=== PATIENT | female | born 1945 | race Caucasian/White ===

== ENCOUNTER 2019-08-06 10:52 | Outpatient (CLI) | payer MEDICARE, SELFPAY ==
[2019-08-06 11:50] LABS: Hemoglobin A1C 6.2 % (<5.7)
[2019-08-06 11:55] LABS: Alanine Aminotransferase 15 U/L (4-35); Albumin Level 3.8 g/dL (3.5-5.1); Alkaline Phosphatase 88 U/L (38-126); Aspartate Amino Transferase 33 U/L (14-36); Bilirubin,Total 0.5 mg/dL (0.2-1.3); Blood Urea Nitrogen 26 mg/dL (7-17); Calcium 9.3 mg/dL (8.4-10.2); Carbon Dioxide 25 mmol/L (22-30); Chloride 102 mmol/L (98-107); Estimated Glomerular Filt Rate 34; Glucose 101 mg/dL (65-105); Potassium 4.6 mmol/L (3.4-5.0); Sodium 141 mmol/L (137-145)
== END 2019-08-06 10:53 | disposition home or self-care (01) ==
PROVIDERS: PCP Family Medicine; Visit Provider Physician Assistant
DX: E11.9 Type 2 diabetes mellitus without complications (principal)
CPT/HCPCS: 36415; 80053; 83036

== ENCOUNTER 2019-08-13 10:43 | Outpatient (CLI) | payer MEDICARE, SELFPAY ==
[2019-08-13 11:27] LABS: Basophils Absolute Auto 0.1 K/mm3 (0.0-0.1); Basophils Percent Auto 1.1 % (0.2-1.2); Eosinophils Absolute Auto 0.2 K/mm3 (0-0.3); Eosinophils Percent Auto 2.4 % (0-4.4); Hematocrit 30.6 % (37.0-47.0); Hemoglobin 9.7 g/dL (12.0-15.0); Immature Granulocyte Absolute 0.08 K/mm3 (0.00-0.031); Immature Granulocyte Percent A 0.8 % (0-0.5); Lymphocytes Absolute Auto 3.23 K/mm3 (0.9-3.2); Lymphocytes Percent Auto 32.8 % (18.3-44.2); Mean Corpuscular HGB Conc 31.7 g/dl (32-36); Mean Corpuscular Hemoglobin 28.6 pg (26-34); Mean Corpuscular Volume 90.3 fl (80-100); Mean Platelet Volume 10.7 fl (7.4-10.4); Monocytes Absolute Auto 0.6 K/mm3 (0.1-0.6); Monocytes Percent Auto 6.3 % (2.6-8.5); Neutrophils Absolute Auto 5.6 K/mm3 (1.3-6.7); Neutrophils Percent Auto 56.6 % (45.5-73.1); Platelet Count Result 246 k/mm3 (150-375); Red Blood Count 3.39 M/mm3 (4.2-5.4); Red Cell Distribution Width 17.7 % (11.5-14.5); White Blood Count 9.9 K/mm3 (4.5-10.0)
[2019-08-13 11:38] LABS: D Dimer 1.92 ug/mL (<0.48)
[2019-08-13 11:41] LABS: Alanine Aminotransferase 18 U/L (4-35); Albumin Level 3.7 g/dL (3.5-5.1); Alkaline Phosphatase 85 U/L (38-126); Aspartate Amino Transferase 33 U/L (14-36); Bilirubin,Total 0.5 mg/dL (0.2-1.3); Blood Urea Nitrogen 33 mg/dL (7-17); Calcium 8.8 mg/dL (8.4-10.2); Carbon Dioxide 26 mmol/L (22-30); Chloride 99 mmol/L (98-107); Estimated Glomerular Filt Rate 29; Glucose 99 mg/dL (65-105); Potassium 4.4 mmol/L (3.4-5.0); Sodium 139 mmol/L (137-145)
[2019-08-13 11:50] LABS: NT Pro B Type Natriuretic Pept 330 PG/ML (5-100)
== END 2019-08-13 10:44 | disposition home or self-care (01) ==
PROVIDERS: PCP Family Medicine; Visit Provider Physician Assistant
DX: R06.02 Shortness of breath (principal); R06.09 Other forms of dyspnea; R60.9 Edema, unspecified
CPT/HCPCS: 36415; 80053; 83880; 84443; 85025; 85380

== ENCOUNTER 2019-08-14 10:05 | Outpatient (CLI) | payer MEDICARE, SELFPAY ==
--- NOTE | ~2019-08-14 | US_ITS ---
EXAMINATION: US venous doppler [facility] DATE: 08/14/2019 11:19 INDICATION: Lower limb edema. TECHNIQUE: Grayscale ultrasound images without and with compression and Doppler ultrasound images of the bilateral lower extremity veins were obtained. COMPARISON: None. FINDINGS: The visualized portions of right common femoral vein, profunda (deep) femoral vein, femoral vein, pop liteal vein, posterior tibial veins, and greater saphenous vein outflow are patent. There is thrombus in the peroneal veins. The visualized portions of left common femoral vein, profunda femoral vein, femoral vein, popliteal v ein, posterior tibial veins, and greater saphenous vein outflow are patent. There is thrombus in the peroneal veins. There is left inguinal lymphadenopathy. A node measures 5.1 x 2.2 cm. IMPRESSION: 1. Deep vein thrombosis involving the bilateral peroneal veins. I called this result to Paulette carter on 08/14/19 at 11:27 AM. 2. Left inguinal lymphadenopathy. Reviewed, dictated and finalized at location A. EM SUPPORT ANALYST IMPRESSION: 1. Deep vein thrombosis involving the bilateral peroneal veins. I called this result to Paulette Disla on 08/14/19 at 11:27 AM. 2. Left inguinal lymphadenopathy.
[2019-08-14 11:20] LABS: Blood Urea Nitrogen 36 mg/dL (8-26); Estimated Glomerular Filt Rate 29
== END 2019-08-14 10:06 | disposition home or self-care (01) ==
PROVIDERS: PCP Family Medicine; Visit Provider Physician Assistant
DX: R06.02 Shortness of breath (principal); I82.403 Acute embolism and thrombosis of unspecified deep veins of lower extremity, bilateral
CPT/HCPCS: 93970

== ENCOUNTER 2019-08-14 11:45 | Emergency (ER) | payer MEDICARE, SELFPAY ==
--- NOTE | ~2019-08-14 | XR_ITS ---
EXAMINATION: XR chest 2V DATE: 08/14/2019 12:21 INDICATION: Shortness of breath TECHNIQUE: PA and lateral views of the chest are obtained. COMPARISON: 07/02/2017 FINDINGS: The lungs are free of acute opacities. There is no pleural effusion or pneumothorax. The ca rdiomediastinal silhouette is normal. There is mild thoracic spondylosis. IMPRESSION: 1. No acute cardiopulmonary abnormality. Reviewed, dictated and finalized at location A. DREN'S PROGRAM COORDINATOR
--- NOTE | ~2019-08-14 | NM_ITS ---
EXAMINATION: NM lung vent and perfusion DATE: 08/14/2019 13:43 INDICATION: Shortness of breath. TECHNIQUE: The patient breathed 17.2 mCi xenon-133 for ventilation images. 5.22 mCi Tc-99m MAA was ad ministered intravenously for perfusion images. Scintigraphic images of the chest were obtained. COMPARISON: Chest 2 views 08/14/2019 FINDINGS: The single breath ventilation image demonstrates small defects in the upper lobes and lower lobes. Th ere is a moderate-sized defect in left upper lobe. Ventilation washout images show retention in left midlung zone. Perfusion images show a matched moderate-sized defect in left upper lobe. ] IMPRESSION: 1. Low probability for pulmonary embolism. Reviewed, dictated and finalized at location A. ON WRAPPER
[2019-08-14 11:56] VITALS: BP 121/99; PULSE 80; RESP 24; TEMP 36.7; O2SAT 100
--- NOTE | 2019-08-14 11:56 | ED.SOB ---
HPI - SOB/Dyspnea General Chief Complaint: Shortness of Breath/Dyspnea Stated Complaint: SOB and ?? DVT Time Seen by Provider: 08/14/19 11:47 Source: patient Mode of arrival: ambulatory Limitations: no limitations History of Present Illness HPI Narrative: A 73 y/o female presents to the ED with c/o SOB. Pt states that the SOB started 6 months ago and has been constant since. She notes that she was seen by Dr. Scott yesterday and was diagnosed with bilateral DVT's today. Pt adds that the SOB is aggravated when she lies down. She denies CP. 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 MD elicited complaint: shortness of breath Pertinent past history: DVT Onset (ago): month(s) (6) Timing: constant Exacerbating factors: lying flat Known history of: DVT Associated symptoms: denies other symptoms Related Data Allergies Allergy/AdvReac Type Severity Reaction Status Date / Time atorvastatin Allergy Severe HIVES Verified 07/30/17 11:51 cefaclor Allergy Unknown Unknown Verified 08/14/19 12:11 lisinopril Allergy Unknown Unknown Verified 08/14/19 12:11 Review of Systems Review of Systems: All systems reviewed & are unremarkable except as noted in HPI and below Cardiovascular: Cardiovascular: Denies chest pain Respiratory: Respiratory: Reports dyspnea PMFSH Past Medical History Medical History (Updated 08/14/19 @ 14:12 by Gallito Barnett MD) Allergic rhinitis Cataracts, bilateral Chronic kidney disease, stage 1 Chronic lymphoid leukemia CKD (chronic kidney disease), stage III Collar bone fracture Diverticulosis DVT (deep venous thrombosis) Esophageal stricture Essential hypertension GERD (gastroesophageal reflux disease) Glaucoma Hairy cell leukemia History of chemotherapy Hyperlipidemia Lymphoma Mixed hyperlipidemia Nocturnal leg movements 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 VASILE (obstructive sleep apnea) Seasonal allergies Sleep apnea SOB (shortness of breath) 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 chronic kidney disease Uterine cancer Surgical History Surgical History History of cataract surgery History of hysterectomy Family History Family History Father Family history of lung cancer Mother Family history of lung cancer Other Diabetes mellitus Family history of allergic disorder Family history of malignant neoplasm Hypertension Social History Social History Smoking status: Never smoker Alcohol intake: never Exam Const: General: healthy appearing and no acute distress Nutritional Appearance: obese HENMT: Mouth: Yes lip normal and Yes moist mucous membranes Eyes: Conjunctivae: conjunctivae normal Pupils: Equal, round and reactive pupils present Resp: Effort & Inspection: tachypneic Auscultation: clear to auscultation bilaterally Cardio: Rate: regular rate Rhythm: regular rhythm Heart sounds: no murmurs GI: GI Palp: Yes Soft to palpation and No Tenderness to palpation present (GI) Auscultation: normal bowel sounds Back/Spine/Pelvis: Back: other (Full ROM) Skin: General skin exam: normal color, dry skin and other (Warm) Neuro: General: patient oriented x3 (Alert) Speech: normal speech Extrem: General: full ROM and edema bilateral (Trace lower extremity) Psych: Mental Status: mental status grossly normal Affect: Anxious affect present Course Consultations Consultation #1: Discussed case with the patients PCP, Dr. Scott. They advise to have the patient started on Xarelto and they will follow-up. Date: 08/14/19 Time: 14:06 Vital Signs Vital signs: Vital Signs Temperature 36.7 C 08/14/19 11:56 Pulse Rate 80 08/14/19 11:56 Respiratory Rate 24 H 08/14/19 11:56 Blood Pressure 121/99 H 08/14/19 11:56 Pulse Oxime
--- NOTE | 2019-08-14 12:06 | ECG_ITS ---
Measurements Intervals [place] Rate: 74 P: 32 ID: 158 QRS: -35 QRSD: 75 T: 61 QT: 367 QTc: 409 Interpretive Statements SINUS RHYTHM LEFT AXIS DEVIATION RSR' IN V1 OR V2, CONSIDER RIGHT VENTRICULAR HYPERTROPHY OR RIGHT VCD LOW QRS VOLTAGE IN PRECORDIAL LEADS POOR R WAVE PROGRESSION, ANTERIOR LEADS BASELINE ARTIFACT- V5 BORDERLINE ECG Electronically Signed On 08-14-2019 12:20:54 [employer] by Lion Lee D.O.
[2019-08-14 12:25] VITALS: PULSE 79
[2019-08-14 13:00] VITALS: BP 131/46; PULSE 75; RESP 24; TEMP 36.6; O2SAT 97
[2019-08-14 14:00] VITALS: BP 125/63; PULSE 72; RESP 22; O2SAT 98
[2019-08-14 15:00] VITALS: BP 142/89; PULSE 66; RESP 23; TEMP 36.2; O2SAT 95
== END 2019-08-14 15:10 | disposition home or self-care (01) ==
PROVIDERS: Emergency Provider Emergency Medicine; PCP Family Medicine
DX: I82.453 Acute embolism and thrombosis of peroneal vein, bilateral (principal); R06.00 Dyspnea, unspecified; E11.22 Type 2 diabetes mellitus with diabetic chronic kidney disease; N18.9 Chronic kidney disease, unspecified; I12.9 Hypertensive chronic kidney disease with stage 1 through stage 4 chronic kidney disease, or unspecified chronic kidney disease; H40.9 Unspecified glaucoma; C91.40 Hairy cell leukemia not having achieved remission; E78.2 Mixed hyperlipidemia; G47.33 Obstructive sleep apnea (adult) (pediatric); Z85.42 Personal history of malignant neoplasm of other parts of uterus; Z79.899 Other long term (current) drug therapy; R94.31 Abnormal electrocardiogram [ECG] [EKG]
CPT/HCPCS: 71046; 78582; 93005; 93970; 99283; A9540; A9558

== ENCOUNTER 2020-04-05 11:11 | Outpatient (CLI) | payer MEDICARE, SELFPAY ==
[2020-04-05 11:56] LABS: Basophils Absolute Auto 0.1 K/mm3 (0.0-0.1); Basophils Percent Auto 1.1 % (0.2-1.2); Eosinophils Absolute Auto 0.2 K/mm3 (0-0.3); Eosinophils Percent Auto 2.1 % (0-4.4); Hematocrit 25.8 % (37.0-47.0); Hemoglobin 8.5 g/dL (12.0-15.0); Immature Granulocyte Absolute 0.11 K/mm3 (0.00-0.031); Immature Granulocyte Percent A 1.1 % (0-0.5); Lymphocytes Percent Auto 34.8 % (18.3-44.2); Mean Corpuscular HGB Conc 32.9 g/dl (32-36); Mean Corpuscular Hemoglobin 32.2 pg (26-34); Mean Corpuscular Volume 97.7 fl (80-100); Mean Platelet Volume 10.3 fl (7.4-10.4); Monocytes Absolute Auto 0.8 K/mm3 (0.1-0.6); Monocytes Percent Auto 7.2 % (2.6-8.5); Neutrophils Absolute Auto 5.6 K/mm3 (1.3-6.7); Neutrophils Percent Auto 53.7 % (45.5-73.1); Platelet Count Result 318 k/mm3 (150-375); Red Blood Count 2.64 M/mm3 (4.2-5.4); Red Cell Distribution Width 17.6 % (11.5-14.5); White Blood Count 10.4 K/mm3 (4.5-10.0)
[2020-04-05 12:21] LABS: LDL Cholesterol Direct 47 mg/dL
[2020-04-05 12:40] LABS: Alanine Aminotransferase 14 U/L (4-35); Albumin Level 3.3 g/dL (3.5-5.1); Alkaline Phosphatase 88 U/L (38-126); Anion Gap 7 mmol/L (8-16); Aspartate Amino Transferase 25 U/L (14-36); Bilirubin,Total 0.7 mg/dL (0.2-1.3); Blood Urea Nitrogen 29 mg/dL (7-17); Carbon Dioxide 29 mmol/L (22-30); Chloride 104 mmol/L (98-107); Cholesterol 100 mg/dL (0-200); Estimated Glomerular Filt Rate 31; Glucose 103 mg/dL (65-105); HDL Direct 21 mg/dL; Sodium 140 mmol/L (137-145); Triglycerides 146 mg/dL (<150)
[2020-04-05 13:05] LABS: Potassium 4.4 mmol/L (3.4-5.0)
[2020-04-05 13:06] LABS: Hemoglobin A1C 6.1 % (<5.7)
[2020-04-05 17:23] LABS: Creatinine Urine 131.7 mg/dL
[2020-04-05 17:28] LABS: MALB Creatinine Ratio 23.6 mg/g (0-30); Microalbumin Urine Random 31.1 mg/L (0-16.7)
== END 2020-04-05 11:12 | disposition home or self-care (01) ==
LOC: ANHLAB 11:18
PROVIDERS: PCP Family Medicine; Visit Provider Physician Assistant
DX: E78.5 Hyperlipidemia, unspecified (principal); I12.9 Hypertensive chronic kidney disease with stage 1 through stage 4 chronic kidney disease, or unspecified chronic kidney disease; E11.22 Type 2 diabetes mellitus with diabetic chronic kidney disease; N18.30 Chronic kidney disease, stage 3 unspecified; C91.41 Hairy cell leukemia, in remission
CPT/HCPCS: 36415; 80053; 80061; 82043; 83036; 85025

== ENCOUNTER 2020-07-05 10:10 | Inpatient (IN) | payer MEDICARE, SELFPAY ==
[2020-07-05] VITALS (31 sets, daily range): BP systolic 91–166; BP diastolic 20–145; PULSE 78–113; RESP 14–38; TEMP 36.1–37.2; O2SAT 78–100; BMI 40.6
--- NOTE | ~2020-07-05 | US_ITS ---
EXAMINATION: US renal BI DATE: 07/06/2020 10:49 INDICATION: Acute kidney injury. Chronic kidney disease. TECHNIQUE: Multiple ultrasound grayscale images of the kidneys were obtained. COMPARISON: Ultrasound 05/15/2017, abdomen MRI 05/29/2017 FINDINGS: The right kidney measures 10.1 x 5.1 x 5.5 cm. The left kidney measures 11.9 x 5.0 x 6.8 cm. The kidn eys demonstrate normal parenchymal echogenicity. There is no hydronephrosis. The bladder is decompres sed by a Wray catheter. IMPRESSION: 1. Normal kidney sizes. No hydronephrosis. Reviewed, dictated and finalized at location B. EL STATIONARY ENGINEER
--- NOTE | ~2020-07-05 | XR_ITS ---
EXAMINATION: XR chest 2V DATE: 07/05/2020 10:44 INDICATION: Shortness of breath and wheezing and cough. TECHNIQUE: Frontal and lateral views of the chest were obtained. COMPARISON: Chest 2 views 08/14/2019 FINDINGS: There are airspace and interstitial opacities throughout the lungs bilaterally. There are s mall pleural effusions. No pneumothorax. The heart size is normal. IMPRESSION: 1. Diffuse lung disease, consistent with pulmonary edema versus pneumonia. 2. Small pleural effusions. Reviewed, dictated and finalized at location B. L ENGINEERING ASSISTANT
--- NOTE | 2020-07-05 10:31 | ECG_ITS ---
Measurements Intervals [place] Rate: 114 P: [place]: 0 QRS: -21 QRSD: 84 T: 89 QT: 293 QTc: 405 Interpretive Statements SINUS TACHYCARDIA INCOMPLETE RIGHT BUNDLE BRANCH BLOCK LOW QRS VOLTAGE- DIFFUSE LEADS POOR R WAVE PROGRESSION, ANTERIOR LEADS BORDERLINE ST-T WAVE ABNORMALITY- HIGH LATERAL LEADS BASELINE ARTIFACT- I, II, AVR, AVL, V1 ABNORMAL ECG Electronically Signed On 07-05-2020 10:39:17 DIRECTOR OF SAFETY AND SECURITY by Lion Lee D.O.
[2020-07-05 10:35] LABS: Basophils Absolute Auto 0.2 K/mm3 (0.0-0.1); Basophils Percent Auto 0.8 % (0.2-1.2); Eosinophils Absolute Auto 0.1 K/mm3 (0-0.3); Eosinophils Percent Auto 0.7 % (0-4.4); Hematocrit 26.5 % (37.0-47.0); Hemoglobin 8.5 g/dL (12.0-15.0); Immature Granulocyte Absolute 0.15 K/mm3 (0.00-0.031); Immature Granulocyte Percent A 0.8 % (0-0.5); Lymphocytes Absolute Auto 4.08 K/mm3 (0.9-3.2); Lymphocytes Percent Auto 22.1 % (18.3-44.2); Mean Corpuscular HGB Conc 32.1 g/dl (32-36); Mean Corpuscular Hemoglobin 29.6 pg (26-34); Mean Corpuscular Volume 92.3 fl (80-100); Monocytes Absolute Auto 0.9 K/mm3 (0.1-0.6); Monocytes Percent Auto 4.7 % (2.6-8.5); Neutrophils Absolute Auto 13.1 K/mm3 (1.3-6.7); Neutrophils Percent Auto 70.9 % (45.5-73.1); Platelet Count Result 309 k/mm3 (150-375); Red Blood Count 2.87 M/mm3 (4.2-5.4); Red Cell Distribution Width 18.4 % (11.5-14.5); White Blood Count 18.4 K/mm3 (4.5-10.0)
[2020-07-05 10:47] LABS: Alanine Aminotransferase 15 U/L (4-35); Albumin Level 3.5 g/dL (3.5-5.1); Alkaline Phosphatase 85 U/L (38-126); Anion Gap 6 mmol/L (8-16); Aspartate Amino Transferase 23 U/L (14-36); Bilirubin,Total 0.8 mg/dL (0.2-1.3); Blood Urea Nitrogen 29 mg/dL (7-17); Calcium 8.8 mg/dL (8.4-10.2); Carbon Dioxide 25 mmol/L (22-30); Chloride 109 mmol/L (98-107); Estimated CRCL calculation 34 ml/min; Estimated Glomerular Filt Rate 40; Glucose 133 mg/dL (65-105); Potassium 4.8 mmol/L (3.4-5.0); Sodium 140 mmol/L (137-145)
[2020-07-05 10:49] LABS: INR 1.7; Prothrombin Time 20.5 Seconds (11.1-14.7)
[2020-07-05 10:50] LABS: Partial Thromboplastin Time 35.5 SECONDS (22.3-36.8)
[2020-07-05 10:55] LABS: NT Pro B Type Natriuretic Pept 2510 PG/ML (5-100)
--- NOTE | 2020-07-05 11:07 | ED.SOB ---
HPI - SOB/Dyspnea General Chief Complaint: Shortness of Breath/Dyspnea Stated Complaint: SOB Time Seen by Provider: 07/05/20 10:12 History of Present Illness HPI Narrative: Patient is a 74-year-old female who presents ER with shortness of breath. Reports worsening over the last 3 weeks but significantly worsened over the last 5 days. Received nebulizer in route by EMS with some improvement of wheezing. Patient endorses orthopnea. She also reports a 20 pound weight loss. No chest pain or chest pressure. She has had no fevers or chills or sweats. No productive cough. Denies Covid exposures. Related Data Allergies Allergy/AdvReac Type Severity Reaction Status Date / Time atorvastatin Allergy Severe HIVES Verified 07/05/20 10:30 cefaclor AdvReac Unknown Nausea and Verified 07/05/20 10:30 Vomiting Review of Systems Review of Systems: All systems reviewed & are unremarkable except as noted in HPI and below Constitutional: Constitutional: Denies chills, Denies fever(s) and Reports weakness ENT: Denies nasal congestion and Denies sore throat Cardiovascular: Cardiovascular: Denies chest pain, Denies rapid heart rate and Denies radiating jaw, neck or arm pain Respiratory: Respiratory: Denies cough, Reports dyspnea and Reports wheezing Gastrointestinal: Gastrointestinal: Denies abdominal pain, Denies nausea and Denies vomiting Genitourinary: Genitourinary: Denies nocturia and Denies dysuria Neurologic: Denies focal weakness and Denies numbness PMFSH Past Medical History Medical History (Updated 07/05/20 @ 11:36 by Bogdan Kelly MD) Allergic rhinitis Cataracts, bilateral Chronic kidney disease, stage 1 Chronic lymphoid leukemia CKD (chronic kidney disease) CKD (chronic kidney disease), stage III Collar bone fracture Diverticulosis DVT (deep venous thrombosis) Elevated TSH Esophageal stricture Essential hypertension GERD (gastroesophageal reflux disease) Glaucoma Hairy cell leukemia History of chemotherapy Hyperlipidemia Lymphoma Mixed hyperlipidemia Nocturnal leg movements 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 VASILE (obstructive sleep apnea) Restless leg syndrome Seasonal allergies Sleep apnea SOB (shortness of breath) 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 chronic kidney disease Uterine cancer Wellness examination Surgical History Surgical History History of cataract surgery History of hysterectomy Family History Family History Father Family history of lung cancer Mother Family history of lung cancer Other Diabetes mellitus Family history of allergic disorder Family history of malignant neoplasm Hypertension Social History Social History (Updated 04/20/20 @ 09:04 by Katya Murrieta [facility]) Smoking status: Never smoker Alcohol intake: never Substance use: never Substance use type: does not use Gender identity (if verbalized by the patient): Female Exam Narrative: Exam Narrative: GENERAL: Uncomortable-appearing, well-nourished, and in mild distress. HEAD: Normocephalic, atraumatic. EYES: PERRL and EOMI. ENT: Mucous membranes moist. CHEST: Increased respiratory rate with diffuse crackles without wheezing. Mild respiratory distress HEART: Tachycardic with regular rhythm. Normal peripheral pulses. ABDOMEN: Soft, nontender, nondistended. EXTREMITIES: Normal range of motion. 1+ edema. SKIN: Warm, dry, no rash. NEURO: Alert and oriented x3. PSYCH: Normal mood and affect. Course Course Emergency Course: Discussed case with patient and hospitalist service. Will diurese but also treat for possible pneumonia. Patient received Covid swab. Admit to hospitalist service. Patient being placed on BiPAP for comfort. Vital Signs Vital signs: Vital Signs Temperature 97 F L 07/05/20 10:19 Pulse Rate 113 H
[2020-07-05] MEDS: FUROSEMIDE INJ 40 MG/4 ML VIAL IV PUSH ×2 (11:49→21:08)
--- NOTE | 2020-07-05 12:37 | PC.NURSE ---
report given to Jeanette. requested we wait 10 min for transfer. she is getting both our new transfers to IMU.
--- NOTE | 2020-07-05 12:59 | PC.NURSE ---
spoke with respiratory. ok to place patient on 4L NC for transport to IMU. she will come get patient's bipap machine and take up to patient's room.
--- NOTE | 2020-07-05 16:02 | PM.IMHP ---
H&P: HPI History of Present Illness Date/Time: 07/05/20 16:02 Chief Complaint: Shortness of breath Narrative: Netta Graham is a 74 year old female who has a history of hairy cell leukemia. The patient had been on Rituxan but it was discontinued secondary to side effects September 2018. She has had a history of having a lower extremity DVT and has been on Xarelto. Patient denies ever caring the diagnosis of congestive heart failure. The patient does go to [facility] for her treatment for her leukemia. She has [id number] diabetes hypertension hyperlipidemia chronic kidney disease and obstructive sleep apnea that she uses supplemental oxygen overnight. At baseline patient has dyspnea on exertion on office visit dated on 04/20/2020 the patient has gotten more short of breath. She has had to elevate her head at night to sleep she did notice any worsening edema to lower extremities. Patient does occasionally required blood transfusions. She denies any chest pain. Consistent pulmonary edema versus pneumonia. Small pleural effusion. And Rocephin for possibility of community-acquired pneumonia. She was also given IV Lasix. The patient currently is on a BiPAP machine 14/8. 18.4. In her H&H is stable at 8.5 and the 26.5. Creatinine was noted to be 1.3 was previously 1.6. GFR is 40 and typically is 31. Glucose is 133 her last A1c on 04/05/2020 was 6.1. BNP today was noted to be 2510. Patient's COVID testing is pending. The patient's respirations have been as high as 38 today. Patient's pulse ox initially was noted to be in the upper 90s. There was 1 low reading at 78. Patient admitted to inpatient on date of service 07/05/2020 Review of Systems Review of Systems: All systems reviewed & are unremarkable except as noted in HPI and below Constitutional: Constitutional: Reports as per HPI and Reports no additional constitutional complaints Eyes: Eyes: Reports as per HPI and Reports no additional eye complaints ENT: Reports system reviewed and no additional complaints, except as documented and Reports Normal hearing present Cardiovascular: Cardiovascular: Reports no additional cardiovascular complaints Respiratory: Respiratory: Reports no additional respiratory complaints and Reports no additional respiratory complaints Gastrointestinal: Gastrointestinal: Reports as per HPI and Reports no additional gastrointestinal complaints Musculoskeletal: Musculoskeletal: Reports no additional musculoskeletal complaints Integumentary/Breasts: Skin/Breast: Reports system reviewed and no additional complaints, except as docu and Reports as per HPI Neurologic: Reports system reviewed and no additional complaints, except as documented, Reports as per HPI and Reports Normal hearing present Psychiatric: Psychiatric: Reports no additional psychiatric complaints and Reports as per HPI Endocrine: Endocrine: Reports no additional endocrine complaints Hematologic/Lymphatic: Hematologic/Lymphatic: Reports no additional hematologic/lymphatic complaints Allergic/Immunologic: Allergic/Immunologic: Reports no additional allergic/immunologic complaints [facility] Past Medical History Medical History Allergic rhinitis Cataracts, bilateral Chronic kidney disease, stage 1 Chronic lymphoid leukemia CKD (chronic kidney disease) CKD (chronic kidney disease), stage III Collar bone fracture Diverticulosis DVT (deep venous thrombosis) Elevated TSH Esophageal stricture Essential hypertension GERD (gastroesophageal reflux disease) Glaucoma Hairy cell leukemia History of chemotherapy Hyperlipidemia Lymphoma Mixed hyperlipidemia Nocturnal leg movements 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
[2020-07-05 17:53] LABS: Base Excess ABG -0.6 mEq/l (+/-2.0); Fractional Inspired Oxygen 30 %; HCO3 ABG 23.4 mEq/l (22.0-26.0); Oxygen Content ABG 11.1 %vol (16.0-22.0); Oxyhemoglobin 89.9 % THb (90.0-100.0); PCO2 ABG 35.6 mmHg (35.0-45.0); PO2 ABG 60.1 mmHg (80.0-100.0); Total Hemoglobin 8.7 g/dL (12.0-18.0); pH ABG 7.435 (7.350-7.450)
[2020-07-05 17:54] LABS: Device NON-INVASIVE VENT; Modified Allen's Test Pass; Site Drawn RIGHT RADIAL
[2020-07-05 17:55] LABS: Non-Invasive Expiratory Pressure 8 CMH2O; Non-Invasive Inspiratory Pressure 14 CMH2O; Non-Invasive Vent Rate 4 /MIN
[2020-07-05 18:31] LABS: Glucose Point of Care 102 (65-105)
--- NOTE | 2020-07-05 20:42 | ADMGEN ---
This patient, Netta Graham, was admitted to IMU Room 213-01. Patient/family oriented to hospital policies and general routines including ID bracelet, bed and alarms, visiting hours, pain management, procedures, bathroom and other care routines, personal items, smoking policy, room service/diet, and visiting hours. Information on how to activate the Rapid Response Team has been discussed. Patient/Family are encouraged to report perceived risks to care and to ask questions if they do not understand what they are told or what they should do.
[2020-07-05 21:25] LABS: SARS-CoV-2 RNA PCR Negative
[2020-07-05 23:47] LABS: Glucose Point of Care 109 (65-105)
[2020-07-06] VITALS (21 sets, daily range): BP systolic 98–164; BP diastolic 40–67; PULSE 81–113; RESP 19–39; TEMP 36.4–36.8; O2SAT 88–100
--- NOTE | 2020-07-06 | ECHO_ITS ---
Patient Info Name: Netta Graham Age: 74 years : 1945 Gender: Female Ht: 60 in Wt: 207 lbs BSA: 2.05 m2 HR: 95 bpm BP: 138 / 47 mmHg Technical Quality: Fair Exam Date: 07/06/2020 9:02 AM Exam Location: [facility] Patient Status: Inpatient Admit Date: 07/05/2020 Staff Ordering Physician: Dorothy Dunn NP Bunch Trimmer Mold: Srinivas Guzman RDCS, RT Attending Provider: Arik Cuellar MD Referring Physician: Shaun STAUFFER; Exam Type: CA echo doppler color flow Study Info Indications J81.0 - Acute pulmonary edema R06.02 - Shortness of breath Complete two-dimensional, color flow and Doppler transthoracic echocardiogram is performed. Summary 1. Complete two-dimensional, color flow and Doppler transthoracic echocardiogram is performed. 2. Left ventricular chamber dimension is normal. 3. Left ventricular systolic function is normal, estimated at 60-65%. 4. The left ventricular diastolic function is abnormal. 5. E/e' 23 is elevated. 6. Left atrial chamber dimension is moderately enlarged. 7. There is small circumferential pericardial effusion. Left Ventricle E/e' 23 is elevated. Left ventricular chamber dimension is normal. Left ventricular systolic function is normal, estimated at 60-65%. The left ventricular diastolic function is abnormal. Right Ventricle Right ventricular chamber dimension is normal. Right ventricular systolic function is normal. Left Atria Left atrial chamber dimension is moderately enlarged. Right Atria Right atrial chamber dimension is not well visualized. Aortic Valve The aortic valve is trileaflet. There is no aortic valve stenosis. There is no aortic valve regurgitation. Pulmonic Valve There is no pulmonic regurgitation. Mitral Valve There is no mitral valve stenosis. There is no mitral valve regurgitation. Tricuspid Valve There is no tricuspid valve regurgitation. Pericardium/Pleural There is small circumferential pericardial effusion. Inferior Vena Cava Normal inferior vena cava with >50% collapse upon inspiration consistent with normal right atrial pressure, 5 mmHg. Aorta The aortic root size at the sinus of Valsalva is normal. Left Ventricular Outflow Tract Name Value Normal LVOT 2D LVOT Diameter 2.0 cm LVOT Doppler LVOT Peak Gradient 4 mmHg LVOT Mean Gradient 3 mmHg LVOT VTI 25 cm LVOT VTI/AV VTI Ratio 0.6 LVOT Stroke Volume 75 ml LVOT CO 9.3 l/min LVOT CI 4.6 l/min/m2 Mitral Valve Name Value Normal MV Doppler MV Decel [place] 638 cm/s2 MV PHT 61 ms MV Area (PHT)
[2020-07-06] MEDS: LORazepam INJ (*CRX) 2 MG/ML VIAL 0.5 MG IV PUSH (02:52)
[2020-07-06 04:54] LABS: Base Excess ABG 1.1 mEq/l (+/-2.0); Carboxyhemoglobin 0.4 % THb (0-2.0); Fractional Inspired Oxygen 30 %; HCO3 ABG 26.1 mEq/l (22.0-26.0); Methemoglobin ABG 0.3 %THb (0-1.5); Oxygen Content ABG 10.2 %vol (16.0-22.0); Oxygen Saturation ABG 91.6 % (95.0-100.0); Oxyhemoglobin 90.1 % THb (90.0-100.0); PCO2 ABG 43.4 mmHg (35.0-45.0); PO2 ABG 61.9 mmHg (80.0-100.0); PO2 FiO2 Ratio Arterial Blood 2.06 %; Reduced Hemoglobin 9.2 %THb (0-5.0); pH ABG 7.397 (7.350-7.450)
[2020-07-06 04:55] LABS: Basophils Absolute Auto 0.1 K/mm3 (0.0-0.1); Basophils Percent Auto 0.9 % (0.2-1.2); Eosinophils Absolute Auto 0.2 K/mm3 (0-0.3); Eosinophils Percent Auto 1.7 % (0-4.4); Immature Granulocyte Percent A 0.7 % (0-0.5); Lymphocytes Percent Auto 19.7 % (18.3-44.2); Mean Corpuscular HGB Conc 31.8 g/dl (32-36); Mean Corpuscular Hemoglobin 28.7 pg (26-34); Mean Corpuscular Volume 90.2 fl (80-100); Mean Platelet Volume 10.7 fl (7.4-10.4); Monocytes Absolute Auto 0.9 K/mm3 (0.1-0.6); Monocytes Percent Auto 6.4 % (2.6-8.5); Neutrophils Absolute Auto 9.7 K/mm3 (1.3-6.7); Neutrophils Percent Auto 70.6 % (45.5-73.1); Platelet Count Result 246 k/mm3 (150-375); Red Blood Count 2.44 M/mm3 (4.2-5.4); Red Cell Distribution Width 18.5 % (11.5-14.5); White Blood Count 13.7 K/mm3 (4.5-10.0)
[2020-07-06 04:56] LABS: Device BIPAP; Modified Allen's Test Pass; Site Drawn RIGHT RADIAL
[2020-07-06 04:57] LABS: Expiratory Pressure 8 cmH2O; Inspiratory Pressure 14 cmH2O
[2020-07-06 05:13] LABS: Alanine Aminotransferase 13 U/L (4-35); Albumin Level 3.1 g/dL (3.5-5.1); Alkaline Phosphatase 62 U/L (38-126); Anion Gap 5 mmol/L (8-16); Aspartate Amino Transferase 22 U/L (14-36); Bilirubin,Total 0.7 mg/dL (0.2-1.3); Blood Urea Nitrogen 39 mg/dL (7-17); Calcium 8.4 mg/dL (8.4-10.2); Carbon Dioxide 27 mmol/L (22-30); Chloride 107 mmol/L (98-107); Estimated CRCL calculation 25 ml/min; Estimated Glomerular Filt Rate 27; Glucose 126 mg/dL (65-105); Magnesium 2.1 mg/dL (1.6-2.3); Potassium 4.7 mmol/L (3.4-5.0); Sodium 139 mmol/L (137-145)
[2020-07-06] MEDS: MONTELUKAST SODIUM 10 MG TABLET PO (08:36)
[2020-07-06] MEDS: LORATADINE 10 MG TABLET PO (08:36)
[2020-07-06] MEDS: FUROSEMIDE INJ 40 MG/4 ML VIAL IV PUSH ×2 (08:36→21:04)
[2020-07-06] MEDS: RIVAROXABAN 20 MG TABLET PO (08:36)
[2020-07-06] MEDS: TELMISARTAN 40 MG TABLET 80 MG PO (08:37)
[2020-07-06] MEDS: SIMVASTATIN 20 MG TABLET 40 MG PO (08:37)
[2020-07-06] MEDS: rOPINIRole HCL 1 MG TABLET 2 MG PO (08:37)
[2020-07-06 09:00] LABS: Magnesium 2.1 mg/dL (1.6-2.3)
[2020-07-06 12:37] LABS: Glucose Point of Care 101 (65-105)
--- NOTE | 2020-07-06 16:27 | PM.IMPN ---
Progress Note: A&P Assessment and Plan (1) CHF (congestive heart failure): Code(s): I50.9 - Heart failure, unspecified Status: Acute Assessment and Plan: Never had a diagnosis of congestive heart failure. She does not appear to be on a beta-lauren or an Yousuf or an Arb. Continue with the IV Lasix for now as her chest x-ray was read as diffuse lung disease consistent with pulmonary edema versus pneumonia. Patient is currently on a BiPAP and will get ABGs as well. She has trace edema to her lower extremities more so on her feet. An echo has been ordered. 07/06/20 16:27 07/06 patient is a morbidly obese presented with complaint of shortness of breath is found to have pulmonary edema as well as pneumonia, patient cardiac echo showed normal systolic function with ejection fraction of 65% and abnormal diastolic dysfunction patient is being diuresed, patient was placed on BiPAP and is tolerating, BiPAP patient was taken off for little while and now patient is back on BiPAP will continue to monitor, patient also has a community-acquired pneumonia being treated with Rocephin azithromycin will continue to monitor and repeat chest x-ray in 2 days, will have a PT OT evaluate the patient and further recommendation to follow. (2) Respiratory failure: Code(s): J96.90 - Respiratory failure, unspecified, unspecified whether with hypoxia or hypercapnia Status: Acute Assessment and Plan: Patient is currently on a BiPAP machine 29/01. She is being assessed for COVID-19. She is also being treated for pneumonia.Sleep apnea and wears oxygen at night. (3) Person under investigation for COVID-19: Code(s): Z20.822 - Contact with and (suspected) exposure to COVID-19 Status: Acute Assessment and Plan: The patient was swabbed and placed on droplet isolation. COVID test is negative patient is off isolation (4) CKD (chronic kidney disease): Qualifiers: Chronic kidney disease stage: stage 3 (moderate) Chronic kidney disease stage 3 subtype: stage 3b (GFR 30-44) Qualified Code(s): N18.32 - Chronic kidney disease, stage 3b Code(s): N18.9 - Chronic kidney disease, unspecified Status: Acute Assessment and Plan: Much improved from previous her creatinine is 1.3 and previously was 1.6. Please monitor closely with the diuretics. Wray catheter was placed as well. Patient being diuresed, renal ultrasound is normal, will continue to monitor kidney function and further recommendation to follow. (5) Restless leg syndrome: Code(s): G25.81 - Restless legs syndrome Status: Acute Assessment and Plan: Continue with home medications. Is reported that the patient was on ropinirole. (6) DVT (deep venous thrombosis): Qualifiers: DVT location: lower extremity Affected thrombotic vein of extremity: popliteal Chronicity: unspecified Laterality: unspecified laterality Qualified Code(s): I82.439 - Acute embolism and thrombosis of unspecified popliteal vein Code(s): I82.409 - Acute embolism and thrombosis of unspecified deep veins of unspecified lower extremity Status: Acute Assessment and Plan: Continue with home Xarelto (7) Type 2 diabetes mellitus with stage 1 chronic kidney disease: Code(s): E11.22 - Type 2 diabetes mellitus with diabetic chronic kidney disease; N18.1 - Chronic kidney disease, stage 1 Status: Acute Assessment and Plan: Last A1c 6.1. Hold oral medications patient is on a BiPAP. Accu-Cheks every 6 hours with sliding scale insulin and may change to I POST DOCTORAL FELLOW chest when the patient is eating. (8) VASILE (obstructive sleep apnea): Code(s): G47.33 - Obstructive sleep apnea (adult) (pediatric) Status: Acute Assessment and Plan: The patient is currently on BiPAP machine. I did check ABGs. A awaiting results (9) Chronic lymphoid leukemia: Code(s): C91.10 - Chronic lymphocytic leukemia of B-cell type
[2020-07-06 17:25] LABS: Glucose Point of Care 112 (65-105)
[2020-07-06 19:56] LABS: Glucose Point of Care 117 (65-105)
[2020-07-06] MEDS: MELATONIN 5 MG TABLET PO (21:04)
[2020-07-06] MEDS: rOPINIRole HCL 1 MG TABLET PO (21:04)
[2020-07-07] VITALS (19 sets, daily range): BP systolic 96–114; BP diastolic 41–80; PULSE 85–101; RESP 20–31; TEMP 36.4–36.6; O2SAT 93–99
[2020-07-07 05:35] LABS: Albumin Level 2.9 g/dL (3.5-5.1); Anion Gap 3 mmol/L (8-16); Blood Urea Nitrogen 49 mg/dL (7-17); Calcium 7.9 mg/dL (8.4-10.2); Carbon Dioxide 29 mmol/L (22-30); Chloride 105 mmol/L (98-107); Estimated CRCL calculation 21 ml/min; Estimated Glomerular Filt Rate 22; Glucose 114 mg/dL (65-105); Phosphorus 7.1 mg/dL (2.5-4.5); Potassium 5.2 mmol/L (3.4-5.0); Sodium 137 mmol/L (137-145)
[2020-07-07] MEDS: SIMVASTATIN 20 MG TABLET 40 MG PO (08:29)
[2020-07-07] MEDS: rOPINIRole HCL 1 MG TABLET 2 MG PO (08:30)
[2020-07-07] MEDS: FUROSEMIDE INJ 40 MG/4 ML VIAL IV PUSH (08:30)
[2020-07-07] MEDS: TELMISARTAN 40 MG TABLET 80 MG PO (08:30)
[2020-07-07] MEDS: MONTELUKAST SODIUM 10 MG TABLET PO (08:31)
[2020-07-07] MEDS: RIVAROXABAN 20 MG TABLET PO (08:31)
[2020-07-07] MEDS: LORATADINE 10 MG TABLET PO (08:31)
--- NOTE | 2020-07-07 08:45 | P.CDI_ITS ---
CDI Query Clarification Request 1)-07/05 ABG's: pH 7.435 pCO2 35.6 PO2 60.1 HCO3 23.4 O2 sats 92% on bipap with 30% O2 -Shortness of breath documented and patient placed on bipap with 4L O2 -Respiratory failure has been documented. Please further specify acuity of respiratory failure: * Acute * Chronic * Acute on chronic * Unable to determine 2)- CHF, unspecified has been documented - patient cardiac echo showed normal systolic function with ejection fraction of 65% and abnormal diastolic dysfunction patient is being diuresed has been documented. -Lasix 40mg IV push q 12 hrs has been ordered Please further specify type and acuity of CHF: * Systolic *Acute * Diastolic * Chronic * Both systolic and diastolic *Acute on chronic * Unable to determine * Unable to determine <Gail Draper RN - Last Filed: 07/07/20 09:00>
[2020-07-07 12:44] LABS: Glucose Point of Care 105 (65-105)
--- NOTE | 2020-07-07 17:28 | PM.IMPN ---
Progress Note: A&P Assessment and Plan (1) CHF (congestive heart failure): Code(s): I50.9 - Heart failure, unspecified Status: Acute Assessment and Plan: 07/07/20 17:28 Never had a diagnosis of congestive heart failure. She does not appear to be on a beta-lauren or an Yousuf or an Arb. Continue with the IV Lasix for now as her chest x-ray was read as diffuse lung disease consistent with pulmonary edema versus pneumonia. Patient is currently on a BiPAP and will get ABGs as well. She has trace edema to her lower extremities more so on her feet. An echo has been ordered. 07/06/20 16:27 07/06 patient is a morbidly obese presented with complaint of shortness of breath is found to have pulmonary edema as well as pneumonia, patient cardiac echo showed normal systolic function with ejection fraction of 65% and abnormal diastolic dysfunction patient is being diuresed, patient was placed on BiPAP and is tolerating, BiPAP patient was taken off for little while and now patient is back on BiPAP will continue to monitor, patient also has a community-acquired pneumonia being treated with Rocephin azithromycin will continue to monitor and repeat chest x-ray in 2 days, will have a PT OT evaluate the patient and further recommendation to follow. 07/07 today patient is off BiPAP is feeling better not a short of breath dressing being diuresed with IV Lasix however patient creatinine is rising will hold IV Lasix and monitor will place the patient 1200 cc fluid restriction low-sodium diet and will monitor the patient, will have a PT OT evaluate the patient repeat chest x-ray tomorrow to further assess pneumonia and recommendation to follow (2) Respiratory failure: Code(s): J96.90 - Respiratory failure, unspecified, unspecified whether with hypoxia or hypercapnia Status: Acute Assessment and Plan: Patient is currently on a BiPAP machine 29/01. She is being assessed for COVID-19. She is also being treated for pneumonia.Sleep apnea and wears oxygen at night. (3) Person under investigation for COVID-19: Code(s): Z20.822 - Contact with and (suspected) exposure to COVID-19 Status: Acute Assessment and Plan: The patient was swabbed and placed on droplet isolation. COVID test is negative patient is off isolation (4) CKD (chronic kidney disease): Qualifiers: Chronic kidney disease stage: stage 3 (moderate) Chronic kidney disease stage 3 subtype: stage 3b (GFR 30-44) Qualified Code(s): N18.32 - Chronic kidney disease, stage 3b Code(s): N18.9 - Chronic kidney disease, unspecified Status: Acute Assessment and Plan: Much improved from previous her creatinine is 1.3 and previously was 1.6. Please monitor closely with the diuretics. Wray catheter was placed as well. Patient being diuresed, renal ultrasound is normal, will continue to monitor kidney function and further recommendation to follow. (5) Restless leg syndrome: Code(s): G25.81 - Restless legs syndrome Status: Acute Assessment and Plan: Continue with home medications. Is reported that the patient was on ropinirole. (6) DVT (deep venous thrombosis): Qualifiers: Affected thrombotic vein of extremity: popliteal Chronicity: unspecified DVT location: lower extremity Laterality: unspecified laterality Qualified Code(s): I82.439 - Acute embolism and thrombosis of unspecified popliteal vein Code(s): I82.409 - Acute embolism and thrombosis of unspecified deep veins of unspecified lower extremity Status: Acute Assessment and Plan: Continue with home Xarelto (7) Type 2 diabetes mellitus with stage 1 chronic kidney disease: Code(s): E11.22 - Type 2 diabetes mellitus with diabetic chronic kidney disease; N18.1 - Chronic kidney disease, stage 1 Status: Acute Assessment and Plan: Last A1c 6.1. Hold oral medications patient is on a BiPAP. Accu-Cheks every 6 hours with slid
[2020-07-07 18:00] LABS: Glucose Point of Care 104 (65-105)
[2020-07-07] MEDS: MELATONIN 5 MG TABLET PO (20:16)
[2020-07-07] MEDS: rOPINIRole HCL 1 MG TABLET PO (20:17)
[2020-07-07] MEDS: ACETAMINOPHEN 325 MG TABLET 650 MG PO (20:18)
[2020-07-08] VITALS (14 sets, daily range): BP systolic 94–121; BP diastolic 32–58; PULSE 78–95; RESP 20–27; TEMP 36–36.6; O2SAT 93–100
[2020-07-08 05:13] LABS: Anion Gap 5 mmol/L (8-16); Blood Urea Nitrogen 64 mg/dL (7-17); Carbon Dioxide 28 mmol/L (22-30); Chloride 103 mmol/L (98-107); Estimated CRCL calculation 18 ml/min; Estimated Glomerular Filt Rate 19; Glucose 100 mg/dL (65-105); Potassium 5.5 mmol/L (3.4-5.0); Sodium 136 mmol/L (137-145)
[2020-07-08] MEDS: RIVAROXABAN 20 MG TABLET PO (09:24)
[2020-07-08] MEDS: rOPINIRole HCL 1 MG TABLET 2 MG PO (09:25)
[2020-07-08] MEDS: MONTELUKAST SODIUM 10 MG TABLET PO (09:26)
[2020-07-08] MEDS: LORATADINE 10 MG TABLET PO (09:26)
[2020-07-08] MEDS: SIMVASTATIN 20 MG TABLET 40 MG PO (09:26)
[2020-07-08] MEDS: SODIUM POLYSTYRENE SULFONONATE 15 GM/60 ML BTL PO (09:32)
[2020-07-08 12:34] LABS: Glucose Point of Care 111 (65-105)
[2020-07-08 12:38] LABS: Glucose Point of Care 88 (65-105)
[2020-07-08 15:53] LABS: Anion Gap 7 mmol/L (8-16); Blood Urea Nitrogen 65 mg/dL (7-17); Calcium 8.3 mg/dL (8.4-10.2); Carbon Dioxide 28 mmol/L (22-30); Chloride 102 mmol/L (98-107); Estimated CRCL calculation 18 ml/min; Estimated Glomerular Filt Rate 18; Glucose 109 mg/dL (65-105); Potassium 4.9 mmol/L (3.4-5.0); Sodium 137 mmol/L (137-145)
--- NOTE | 2020-07-08 16:42 | PM.IMPN ---
Progress Note: A&P Assessment and Plan (1) CHF (congestive heart failure): Code(s): I50.9 - Heart failure, unspecified Status: Acute Assessment and Plan: 07/08/20 16:42 Never had a diagnosis of congestive heart failure. She does not appear to be on a beta-lauren or an Yousuf or an Arb. Continue with the IV Lasix for now as her chest x-ray was read as diffuse lung disease consistent with pulmonary edema versus pneumonia. Patient is currently on a BiPAP and will get ABGs as well. She has trace edema to her lower extremities more so on her feet. An echo has been ordered. 07/06/20 16:27 07/06 patient is a morbidly obese presented with complaint of shortness of breath is found to have pulmonary edema as well as pneumonia, patient cardiac echo showed normal systolic function with ejection fraction of 65% and abnormal diastolic dysfunction patient is being diuresed, patient was placed on BiPAP and is tolerating, BiPAP patient was taken off for little while and now patient is back on BiPAP will continue to monitor, patient also has a community-acquired pneumonia being treated with Rocephin azithromycin will continue to monitor and repeat chest x-ray in 2 days, will have a PT OT evaluate the patient and further recommendation to follow. 07/07 today patient is off BiPAP is feeling better not a short of breath dressing being diuresed with IV Lasix however patient creatinine is rising will hold IV Lasix and monitor will place the patient 1200 cc fluid restriction low-sodium diet and will monitor the patient, will have a PT OT evaluate the patient repeat chest x-ray tomorrow to further assess pneumonia and recommendation to follow 07/08 patient wore BiPAP at night time and currently off BiPAP sitting in the chair eating her breakfast, is feeling much better not a short of breath as when she arrived, patient creatinine is rising we had held IV Lasix yesterday, and today DC Micardis, renal ultrasound showed Normal kidney sizes. No hydronephrosis. Will consult deputy program manager for further recommendation. Will gently orally hydrate the patient and monitor her kidney function, patient potassium is elevated will give the Kayexalate, (2) Respiratory failure: Code(s): J96.90 - Respiratory failure, unspecified, unspecified whether with hypoxia or hypercapnia Status: Acute Assessment and Plan: Patient is currently on a BiPAP machine 29/01. She is being assessed for COVID-19. She is also being treated for pneumonia.Sleep apnea and wears oxygen at night. (3) Person under investigation for COVID-19: Code(s): Z20.822 - Contact with and (suspected) exposure to COVID-19 Status: Acute Assessment and Plan: The patient was swabbed and placed on droplet isolation. COVID test is negative patient is off isolation (4) CKD (chronic kidney disease): Qualifiers: Chronic kidney disease stage: stage 3 (moderate) Chronic kidney disease stage 3 subtype: stage 3b (GFR 30-44) Qualified Code(s): N18.32 - Chronic kidney disease, stage 3b Code(s): N18.9 - Chronic kidney disease, unspecified Status: Acute Assessment and Plan: Much improved from previous her creatinine is 1.3 and previously was 1.6. Please monitor closely with the diuretics. Wray catheter was placed as well. Patient being diuresed, renal ultrasound is normal, will continue to monitor kidney function and further recommendation to follow. (5) Restless leg syndrome: Code(s): G25.81 - Restless legs syndrome Status: Acute Assessment and Plan: Continue with home medications. Is reported that the patient was on ropinirole. (6) DVT (deep venous thrombosis): Qualifiers: Affected thrombotic vein of extremity: popliteal Chronicity: unspecified DVT location: lower extremity Laterality: unspecified laterality Qualified Code(s): I82.439 - Acute embolism and thrombosis of unspecified popliteal vein Code(s): I82.
[2020-07-08 17:21] LABS: Glucose Point of Care 88 (65-105)
[2020-07-08 20:35] LABS: Glucose Point of Care 122 (65-105)
--- NOTE | 2020-07-08 22:23 | PC.NURSE ---
Evening meds delayed per pt request
[2020-07-08] MEDS: ACETAMINOPHEN 325 MG TABLET 650 MG PO (23:56)
[2020-07-08] MEDS: MELATONIN 5 MG TABLET PO (23:56)
[2020-07-08] MEDS: rOPINIRole HCL 1 MG TABLET PO (23:56)
[2020-07-09] VITALS (14 sets, daily range): BP systolic 109–145; BP diastolic 23–117; PULSE 76–99; RESP 17–30; TEMP 35.9–36.3; O2SAT 94–100
[2020-07-09 05:01] LABS: Albumin Level 2.9 g/dL (3.5-5.1); Anion Gap 6 mmol/L (8-16); Blood Urea Nitrogen 70 mg/dL (7-17); Calcium 7.9 mg/dL (8.4-10.2); Carbon Dioxide 28 mmol/L (22-30); Chloride 102 mmol/L (98-107); Estimated CRCL calculation 16 ml/min; Estimated Glomerular Filt Rate 16; Glucose 115 mg/dL (65-105); Phosphorus 5.8 mg/dL (2.5-4.5); Potassium 4.8 mmol/L (3.4-5.0); Sodium 136 mmol/L (137-145)
[2020-07-09 08:16] LABS: Glucose Point of Care 103 (65-105)
[2020-07-09] MEDS: rOPINIRole HCL 1 MG TABLET 2 MG PO (09:12)
[2020-07-09] MEDS: MONTELUKAST SODIUM 10 MG TABLET PO (09:12)
[2020-07-09] MEDS: SIMVASTATIN 20 MG TABLET 40 MG PO (09:13)
[2020-07-09] MEDS: RIVAROXABAN 20 MG TABLET PO (09:13)
[2020-07-09] MEDS: LORATADINE 10 MG TABLET PO (09:13)
--- NOTE | 2020-07-09 12:14 | PC.NURSE ---
Status changed to med/tele as ordered
[2020-07-09 12:18] LABS: Glucose Point of Care 114 (65-105)
--- NOTE | 2020-07-09 15:23 | PM.CNNEP ---
Assessment and Plan Assessment and plan (1) CKD (chronic kidney disease): Qualifiers: Chronic kidney disease stage: stage 3 (moderate) Chronic kidney disease stage 3 subtype: stage 3b (GFR 30-44) Qualified Code(s): N18.32 - Chronic kidney disease, stage 3b Code(s): N18.9 - Chronic kidney disease, unspecified Status: Acute Assessment and Plan: The patient has chronic kidney disease. Her baseline creatinine is around 1.5. This gives her chronic kidney disease stage IIIB. This is most likely due to her diabetes and hypertension. Rarely lymphoproliferative disorders can infiltrate the kidneys but not usually enough to cause damage to the kidneys. (2) Acute kidney injury: Code(s): N17.9 - Acute kidney failure, unspecified Status: Acute Assessment and Plan: The patient has acute kidney injury on top of the chronic kidney disease. Her creatinine is up to 2.8 today. She could have different possibilities for this. She has pneumonia which can affect kidneys directly. She does not seem to be hypotensive or toxic. The patient could be pre renal because of her diuretics. Her echocardiogram showed good LV and RV function so does not look like this is a cardiorenal syndrome. Rhabdomyolysis is always possible so will get a CPK Her ultrasound was done which ruled out obstruction. Interstitial nephritis is always a possibility since she is on antibiotics however it a little early in the course of the antibiotics for her to have this. Will check urine electrolytes and eosinophils and a CPK. (3) Acute on chronic diastolic (congestive) heart failure: Code(s): I50.33 - Acute on chronic diastolic (congestive) heart failure Status: Acute Assessment and Plan: The patient had volume overload on her chest x-ray but her LV seems to be pretty good. (4) Pneumonia: Code(s): J18.9 - Pneumonia, unspecified organism Status: Acute Assessment and Plan: The patient has pneumonia. She is getting antibiotics for this. (5) Elevated TSH: Code(s): R79.89 - Other specified abnormal findings of blood chemistry Status: Acute Assessment and Plan: Her TSH is fine this time. (6) Type 2 diabetes mellitus with stage 1 chronic kidney disease: Code(s): E11.22 - Type 2 diabetes mellitus with diabetic chronic kidney disease; N18.1 - Chronic kidney disease, stage 1 Status: Acute Assessment and Plan: She is on Accu-Cheks and sliding-scale insulin (7) VASILE (obstructive sleep apnea): Code(s): G47.33 - Obstructive sleep apnea (adult) (pediatric) Status: Acute Assessment and Plan: She uses a CPAP mask religiously (8) Chronic lymphoid leukemia: Code(s): C91.10 - Chronic lymphocytic leukemia of B-cell type not having achieved remission Status: Acute Assessment and Plan: She goes to [facility] for her management of this. History of Present Illness Reason for Consult Consult date: 07/09/20 Chief Complaint Chief complaint: covid pui, respiratory failure, chf, pneumonia History of Present Illness Narrative: Netta is a very pleasant 74-year-old lady who has multiple medical problems including diabetes, DVTs, hairy cell leukemia, hypertension, hyperlipidemia, sleep apnea, hypothyroidism, esophageal stricture, GERD, restless legs, and chronic kidney disease stage 3. She seems to have a baseline creatinine of around 1.5-1.7. The patient came into the hospital because of shortness of breath. This had been going on for the last couple of months. She says she always has some shortness of breath but it was worse in the days before she came in to the hospital. She was not having any chest pain fevers or chills. She came to the emergency room. There she was evaluated and found to have fluid overload. Her COVID test was negative. She was admitted and she was given some antibiotics as well as diuretics. Her Micardi
[2020-07-09 16:04] LABS: Creatine Kinase 23 U/L (30-135)
--- NOTE | 2020-07-09 16:21 | PM.IMPN ---
Progress Note: A&P Assessment and Plan (1) CHF (congestive heart failure): Code(s): I50.9 - Heart failure, unspecified Status: Acute Assessment and Plan: 07/09/20 16:21 Never had a diagnosis of congestive heart failure. She does not appear to be on a beta-lauren or an Yousuf or an Arb. Continue with the IV Lasix for now as her chest x-ray was read as diffuse lung disease consistent with pulmonary edema versus pneumonia. Patient is currently on a BiPAP and will get ABGs as well. She has trace edema to her lower extremities more so on her feet. An echo has been ordered. 07/06/20 16:27 07/06 patient is a morbidly obese presented with complaint of shortness of breath is found to have pulmonary edema as well as pneumonia, patient cardiac echo showed normal systolic function with ejection fraction of 65% and abnormal diastolic dysfunction patient is being diuresed, patient was placed on BiPAP and is tolerating, BiPAP patient was taken off for little while and now patient is back on BiPAP will continue to monitor, patient also has a community-acquired pneumonia being treated with Rocephin azithromycin will continue to monitor and repeat chest x-ray in 2 days, will have a PT OT evaluate the patient and further recommendation to follow. 07/07 today patient is off BiPAP is feeling better not a short of breath dressing being diuresed with IV Lasix however patient creatinine is rising will hold IV Lasix and monitor will place the patient 1200 cc fluid restriction low-sodium diet and will monitor the patient, will have a PT OT evaluate the patient repeat chest x-ray tomorrow to further assess pneumonia and recommendation to follow 07/08 patient wore BiPAP at night time and currently off BiPAP sitting in the chair eating her breakfast, is feeling much better not a short of breath as when she arrived, patient creatinine is rising we had held IV Lasix yesterday, and today MADHU Micardis, renal ultrasound showed Normal kidney sizes. No hydronephrosis. Will consult straight cutter for further recommendation. Will gently orally hydrate the patient and monitor her kidney function, patient potassium is elevated will give the Kayexalate, 07/09 today patient is feeling much better sitting in the chair eating her breakfast, not requiring only 3 L of oxygen nasal cannula, however state did not sleep well last night somebody woke her up, but denies any shortness of breath chest pain or palpitation, consulted straight cutter for her her persistent elevated creatinine, her renal ultrasound was negative for obstruction or hydronephrosis, further workup is in progress and appreciate, will continue present management will continue to monitor, will transfer patient out of IMU to medical floor, will encourage patient to participate in PT OT and further recommendation to follow. (2) Respiratory failure: Code(s): J96.90 - Respiratory failure, unspecified, unspecified whether with hypoxia or hypercapnia Status: Acute Assessment and Plan: Patient is currently on a BiPAP machine 29/01. She is being assessed for COVID-19. She is also being treated for pneumonia.Sleep apnea and wears oxygen at night. (3) Person under investigation for COVID-19: Code(s): Z20.822 - Contact with and (suspected) exposure to COVID-19 Status: Acute Assessment and Plan: The patient was swabbed and placed on droplet isolation. COVID test is negative patient is off isolation (4) CKD (chronic kidney disease): Qualifiers: Chronic kidney disease stage: stage 3 (moderate) Chronic kidney disease stage 3 subtype: stage 3b (GFR 30-44) Qualified Code(s): N18.32 - Chronic kidney disease, stage 3b Code(s): N18.9 - Chronic kidney disease, unspecified Status: Acute Assessment and Plan: Much improved from previous her creatinine is 1.3 and previously was 1.6. Please monitor closely with the diuretics. Wray catheter was placed as well. Patient being
[2020-07-09 16:55] LABS: Glucose Point of Care 99 (65-105)
--- NOTE | 2020-07-09 19:33 | PC.NURSE ---
Pt transferred to [facility] via bed accompanied by staff-O2 on 3l/nc- report given to Radha GARCIA- personal belongings with pt - condition stable
[2020-07-09 19:42] LABS: Creatinine Urine 89.7 mg/dL; Total Protein Urine Random 17 mg/dL; Ur Ttl Prot Creatinine Ratio 0.19 mg/mg (0-0.20)
[2020-07-09 19:49] LABS: Sodium Urine Random 30 meq/L
[2020-07-09 21:19] LABS: Glucose Point of Care 91 (65-105)
--- NOTE | 2020-07-09 22:06 | PC.NURSE ---
This patient, Netta Graham, was received from IMU 201 on 07/09/20 at 1930. Patient oriented to unit policies and routines
--- NOTE | 2020-07-09 22:08 | PC.NURSE ---
Pt requests 2100 medications to be given at 2300.
[2020-07-09] MEDS: HYDROcodone/acetaminophen (*CRX) 5-325 MG TABLET 1 TAB PO (23:01)
[2020-07-09] MEDS: MELATONIN 5 MG TABLET PO (23:02)
[2020-07-09] MEDS: rOPINIRole HCL 1 MG TABLET PO (23:02)
[2020-07-10] VITALS (18 sets, daily range): BP systolic 92–133; BP diastolic 39–98; PULSE 75–94; RESP 16–25; TEMP 36–36.7; O2SAT 94–100
[2020-07-10 06:33] LABS: Anion Gap 4 mmol/L (8-16); Blood Urea Nitrogen 76 mg/dL (7-17); Calcium 8.3 mg/dL (8.4-10.2); Carbon Dioxide 28 mmol/L (22-30); Chloride 102 mmol/L (98-107); Estimated CRCL calculation 18 ml/min; Estimated Glomerular Filt Rate 19; Glucose 101 mg/dL (65-105); Phosphorus 5.9 mg/dL (2.5-4.5); Sodium 134 mmol/L (137-145)
[2020-07-10] MEDS: LORATADINE 10 MG TABLET PO (08:57)
[2020-07-10] MEDS: MONTELUKAST SODIUM 10 MG TABLET PO (08:57)
[2020-07-10] MEDS: rOPINIRole HCL 1 MG TABLET 2 MG PO (08:57)
[2020-07-10] MEDS: RIVAROXABAN 20 MG TABLET PO (08:57)
[2020-07-10] MEDS: SIMVASTATIN 20 MG TABLET 40 MG PO (08:57)
[2020-07-10 09:34] LABS: Glucose Point of Care 93 (65-105)
--- NOTE | 2020-07-10 09:50 | PC.NURSE ---
CONDITION UPDATE GIVEN TO DR. BALDERAS. NOTIFIED HH HAS BEEN LOW ON PREVIOUS CBC AND ORDER RECEIVED TO GET CBC NOW. DISCHARGE PLANNING IN PROGRESS.
[2020-07-10 10:36] LABS: Mean Corpuscular Hemoglobin 29.5 pg (26-34); Mean Corpuscular Volume 92.2 fl (80-100); Mean Platelet Volume 11.9 fl (7.4-10.4); Platelet Count Result 200 k/mm3 (150-375); Red Blood Count 2.17 M/mm3 (4.2-5.4); Red Cell Distribution Width 17.7 % (11.5-14.5); White Blood Count 8.4 K/mm3 (4.5-10.0)
[2020-07-10 10:39] LABS: Hemoglobin 6.4 g/dL (12.0-15.0)
[2020-07-10] MEDS: ONDANSETRON INJ 4 MG/2 ML VIAL IV PUSH (10:50)
--- NOTE | 2020-07-10 11:30 | PC.NURSE ---
HH RESULTS OF TO DR. BALDERAS. ORDERS RECEIVED TO TRANSFUSE 2 UNITS OF PRBC'S.
--- NOTE | 2020-07-10 12:50 | PC.NURSE ---
DR. GROVES HERE TO SEE PT. CONDITION AND LAB RESULTS UPDATE GIVEN.
[2020-07-10 13:15] LABS: Glucose Point of Care 141 (65-105)
--- NOTE | 2020-07-10 13:35 | PM.PNNEP ---
Progress Note: A&P Assessment and Plan (1) CKD (chronic kidney disease): Qualifiers: Chronic kidney disease stage: stage 3 (moderate) Chronic kidney disease stage 3 subtype: stage 3b (GFR 30-44) Qualified Code(s): N18.32 - Chronic kidney disease, stage 3b Code(s): N18.9 - Chronic kidney disease, unspecified Status: Acute Assessment and Plan: The patient has chronic kidney disease. Her baseline creatinine is around 1.5. This gives her chronic kidney disease stage IIIB. Renal ultrasound is unremarkable This is most likely due to her diabetes and hypertension. (2) Acute kidney injury: Code(s): N17.9 - Acute kidney failure, unspecified Status: Acute Assessment and Plan: The patient has acute kidney injury on top of the chronic kidney disease. renal ultrasound is unremarkable. Urine lytes are borderline pre renal. CPK is normal Her creatinine has improved. will continue to observe. Okay for discharge at any time (3) Acute on chronic diastolic (congestive) heart failure: Code(s): I50.33 - Acute on chronic diastolic (congestive) heart failure Status: Acute Assessment and Plan: The patient had volume overload on her chest x-ray but her LV seems to be pretty good. (4) Pneumonia: Code(s): J18.9 - Pneumonia, unspecified organism Status: Acute Assessment and Plan: The patient has pneumonia. She is getting antibiotics for this. (5) Elevated TSH: Code(s): R79.89 - Other specified abnormal findings of blood chemistry Status: Acute Assessment and Plan: Her TSH is fine this time. (6) Type 2 diabetes mellitus with stage 1 chronic kidney disease: Code(s): E11.22 - Type 2 diabetes mellitus with diabetic chronic kidney disease; N18.1 - Chronic kidney disease, stage 1 Status: Acute Assessment and Plan: She is on Accu-Cheks and sliding-scale insulin (7) VASILE (obstructive sleep apnea): Code(s): G47.33 - Obstructive sleep apnea (adult) (pediatric) Status: Acute Assessment and Plan: She uses a CPAP mask religiously (8) Chronic lymphoid leukemia: Code(s): C91.10 - Chronic lymphocytic leukemia of B-cell type not having achieved remission Status: Acute Assessment and Plan: She goes to [facility] for her management of this. Subjective Date/time seen: 07/10/20 13:35 Interval history: the patient is alert. She is feeling okay. She is eager for discharge. She is going to get a transfusion today. Review of Systems Cardiovascular: Cardiovascular: Reports no additional cardiovascular complaints Respiratory: Respiratory: Reports no additional respiratory complaints Gastrointestinal: Gastrointestinal: Reports no additional gastrointestinal complaints Genitourinary: Genitourinary: Reports no additional female genitourinary complaints Exam Narrative: Exam Narrative: WDWN in NAD skin no rash head ncat lungs clear cor reg no rub abd BS+ nontender and soft ext 1+ edema. Objective Data Vital Signs Vital Signs: Vital Signs - 24 hr 07/09/20 14:00 07/09/20 16:00 07/09/20 18:00 Temperature 36.3 C L Pulse Rate 84 90 86 Respiratory Rate 18 Blood Pressure 121/95 H Pulse Oximetry 96 07/09/20 20:00 07/09/20 20:20 07/10/20 00:00 Temperature 36.3 C L Pulse Rate 99 95 94 Respiratory Rate 20 Blood Pressure 127/62 Pulse Oximetry 100 07/10/20 00:02 07/10/20 04:00 07/10/20 06:00 Temperature 36.3 C L Pulse Rate 89 88 87 Respiratory Rate 25 H 20 Blood Pressure 133/98 H Pulse Oximetry 94 96 Intake/Output Intake/Output: Intake & Output 07/07/20 07/08/20 07/09/20 07/10/20 23:59 23:59 23:59 23:59 Intake Total 690 1660 2100 150 Output Total 850 950 700 Balance -647 247 2653 150 Meds/Results Medications: Active Medications Generic Name Dose Route Start Last Admin Trade Name Freq PRN
[2020-07-10] MEDS: SODIUM CHLORIDE 0.9% IV 250 ML 30 ML IV CONT (15:07)
--- NOTE | 2020-07-10 15:20 | PM.IMPN ---
Progress Note: A&P Assessment and Plan (1) CHF (congestive heart failure): Code(s): I50.9 - Heart failure, unspecified Status: Acute Assessment and Plan: 07/10/20 15:20 Never had a diagnosis of congestive heart failure. She does not appear to be on a beta-lauren or an Yousuf or an Arb. Continue with the IV Lasix for now as her chest x-ray was read as diffuse lung disease consistent with pulmonary edema versus pneumonia. Patient is currently on a BiPAP and will get ABGs as well. She has trace edema to her lower extremities more so on her feet. An echo has been ordered. 07/06/20 16:27 07/06 patient is a morbidly obese presented with complaint of shortness of breath is found to have pulmonary edema as well as pneumonia, patient cardiac echo showed normal systolic function with ejection fraction of 65% and abnormal diastolic dysfunction patient is being diuresed, patient was placed on BiPAP and is tolerating, BiPAP patient was taken off for little while and now patient is back on BiPAP will continue to monitor, patient also has a community-acquired pneumonia being treated with Rocephin azithromycin will continue to monitor and repeat chest x-ray in 2 days, will have a PT OT evaluate the patient and further recommendation to follow. 07/07 today patient is off BiPAP is feeling better not a short of breath dressing being diuresed with IV Lasix however patient creatinine is rising will hold IV Lasix and monitor will place the patient 1200 cc fluid restriction low-sodium diet and will monitor the patient, will have a PT OT evaluate the patient repeat chest x-ray tomorrow to further assess pneumonia and recommendation to follow 07/08 patient wore BiPAP at night time and currently off BiPAP sitting in the chair eating her breakfast, is feeling much better not a short of breath as when she arrived, patient creatinine is rising we had held IV Lasix yesterday, and today MADHU Micardis, renal ultrasound showed Normal kidney sizes. No hydronephrosis. Will consult skilled labor for further recommendation. Will gently orally hydrate the patient and monitor her kidney function, patient potassium is elevated will give the Kayexalate, 07/09 today patient is feeling much better sitting in the chair eating her breakfast, not requiring only 3 L of oxygen nasal cannula, however state did not sleep well last night somebody woke her up, but denies any shortness of breath chest pain or palpitation, consulted skilled labor for her her persistent elevated creatinine, her renal ultrasound was negative for obstruction or hydronephrosis, further workup is in progress and appreciate, will continue present management will continue to monitor, will transfer patient out of IMU to medical floor, will encourage patient to participate in PT OT and further recommendation to follow. 07/10 patient with history of hairy cell leukemia and lymphoma for which patient is seen and [facility], today patient hemoglobin is 6.4 will give 2 units of pack RBC, patient clinically stable denies any chest pain shortness of breath or dizziness, patient states see gets transfusion every 2-3 weeks, patient creatinine is trending down and patient seen by skilled labor, patient wore her BiPAP last night and currently on nasal cannula, overall patient's symptoms have improved, remains clinically stable will discharge the patient home tomorrow. (2) Respiratory failure: Code(s): J96.90 - Respiratory failure, unspecified, unspecified whether with hypoxia or hypercapnia Status: Acute Assessment and Plan: Patient is currently on a BiPAP machine 29/01. She is being assessed for COVID-19. She is also being treated for pneumonia.Sleep apnea and wears oxygen at night. (3) Person under investigation for COVID-19: Code(s): Z20.822 - Contact with and (suspected) exposure to COVID-19 Status: Acute Assessment and Plan: The patient was swabbed and placed on droplet isolation.
[2020-07-10 17:47] LABS: Glucose Point of Care 107 (65-105)
[2020-07-10 21:29] LABS: Glucose Point of Care 128 (65-105)
[2020-07-10] MEDS: rOPINIRole HCL 1 MG TABLET PO (22:26)
[2020-07-10] MEDS: MELATONIN 5 MG TABLET PO (22:26)
[2020-07-10] MEDS: HYDROcodone/acetaminophen (*CRX) 5-325 MG TABLET 1 TAB PO (22:28)
[2020-07-11] VITALS (8 sets, daily range): BP systolic 101–126; BP diastolic 42–87; PULSE 73–154; RESP 18–20; TEMP 36.3–36.8; O2SAT 98–100
[2020-07-11 05:53] LABS: Hematocrit 27.3 % (37.0-47.0); Hemoglobin 8.7 g/dL (12.0-15.0); Mean Corpuscular HGB Conc 31.9 g/dl (32-36); Mean Corpuscular Hemoglobin 28.2 pg (26-34); Mean Corpuscular Volume 88.3 fl (80-100); Mean Platelet Volume 11.1 fl (7.4-10.4); Platelet Count Result 210 k/mm3 (150-375); Red Blood Count 3.09 M/mm3 (4.2-5.4); Red Cell Distribution Width 17.7 % (11.5-14.5); White Blood Count 8.3 K/mm3 (4.5-10.0)
[2020-07-11 06:08] LABS: Albumin Level 3.2 g/dL (3.5-5.1); Anion Gap 6 mmol/L (8-16); Blood Urea Nitrogen 74 mg/dL (7-17); Calcium 8.1 mg/dL (8.4-10.2); Carbon Dioxide 27 mmol/L (22-30); Chloride 101 mmol/L (98-107); Estimated CRCL calculation 18 ml/min; Estimated Glomerular Filt Rate 19; Glucose 105 mg/dL (65-105); Phosphorus 6.9 mg/dL (2.5-4.5); Potassium 5.2 mmol/L (3.4-5.0); Sodium 134 mmol/L (137-145)
--- NOTE | 2020-07-11 07:40 | PC.NURSE ---
CONDITION UPDATE CALLED TO DR. BALDERAS. NOTIFIED OF LAB RESULT TRENDS.
[2020-07-11] MEDS: DOCUSATE SODIUM 100 MG CAPSULE PO ×2 (09:55→21:59)
[2020-07-11] MEDS: LORATADINE 10 MG TABLET PO (09:56)
[2020-07-11] MEDS: MONTELUKAST SODIUM 10 MG TABLET PO (09:56)
[2020-07-11] MEDS: SIMVASTATIN 20 MG TABLET 40 MG PO (09:57)
[2020-07-11] MEDS: rOPINIRole HCL 1 MG TABLET 2 MG PO (09:57)
[2020-07-11] MEDS: RIVAROXABAN 20 MG TABLET PO (09:57)
[2020-07-11] MEDS: polyethylene glycoL 3350 17 GM POWD.PACK PO (10:03)
--- NOTE | 2020-07-11 10:50 | PC.NURSE ---
DR. GROVES HERE. MADE AWARE OF CHEMISTRY LAB RESULT TRENDS. PT. SEEN. SEE DR. GROVES NOTE.
--- NOTE | 2020-07-11 11:46 | PM.PNNEP ---
Progress Note: A&P Assessment and Plan (1) CKD (chronic kidney disease): Qualifiers: Chronic kidney disease stage: stage 3 (moderate) Chronic kidney disease stage 3 subtype: stage 3b (GFR 30-44) Qualified Code(s): N18.32 - Chronic kidney disease, stage 3b Code(s): N18.9 - Chronic kidney disease, unspecified Status: Acute Assessment and Plan: The patient has chronic kidney disease. Her baseline creatinine is around 1.5. This gives her chronic kidney disease stage IIIB. Renal ultrasound is unremarkable This is most likely due to her diabetes and hypertension. (2) Acute kidney injury: Code(s): N17.9 - Acute kidney failure, unspecified Status: Acute Assessment and Plan: The patient has acute kidney injury on top of the chronic kidney disease. renal ultrasound is unremarkable. Urine lytes are borderline pre renal. CPK is normal Most likely the acute kidney injury is due to the pneumonia and also diuretics. Her creatinine had improved yesterday but today is about the same. Now has a high potassium. She has no supplements For potassium. She is not on any diuretics that retain potassium. She mentions that she ate a banana yesterday. Certainly her renal insufficiency could lead to high potassium. I instructed her to avoid high potassium foods. The patient has low sodium. This is been low since she has gotten here. It is very mildly low and is probably related to her renal insufficiency and water drinking as well. I asked her just to drink if she is thirsty and not if she is not. Pushing more fluids will not help her. will continue to observe. If discharge she will need close follow-up with labs. (3) Acute on chronic diastolic (congestive) heart failure: Code(s): I50.33 - Acute on chronic diastolic (congestive) heart failure Status: Acute Assessment and Plan: The patient had volume overload on her chest x-ray but her LV seems to be pretty good. (4) Pneumonia: Code(s): J18.9 - Pneumonia, unspecified organism Status: Acute Assessment and Plan: The patient has pneumonia. She is getting antibiotics for this. (5) Elevated TSH: Code(s): R79.89 - Other specified abnormal findings of blood chemistry Status: Acute Assessment and Plan: Her TSH is fine this time. (6) Type 2 diabetes mellitus with stage 1 chronic kidney disease: Code(s): E11.22 - Type 2 diabetes mellitus with diabetic chronic kidney disease; N18.1 - Chronic kidney disease, stage 1 Status: Acute Assessment and Plan: She is on Accu-Cheks and sliding-scale insulin (7) VASILE (obstructive sleep apnea): Code(s): G47.33 - Obstructive sleep apnea (adult) (pediatric) Status: Acute Assessment and Plan: She uses a CPAP mask religiously (8) Chronic lymphoid leukemia: Code(s): C91.10 - Chronic lymphocytic leukemia of B-cell type not having achieved remission Status: Acute Assessment and Plan: She goes to [facility] for her management of this. Subjective Date/time seen: 07/11/20 11:46 Interval history: the patient is alert. She is feeling okay. She is eager for discharge. Exam Narrative: Exam Narrative: WDWN in NAD skin no rash head ncat lungs clear bilaterally cor reg no rub abd BS+ nontender and soft ext 1+ edema. Objective Data Vital Signs Vital Signs: Vital Signs - 24 hr 07/10/20 12:00 07/10/20 15:10 07/10/20 15:25 Temperature 36.7 C 36.3 C L 36.5 C Pulse Rate 84 82 77 Respiratory Rate 20 16 16 Blood Pressure 92/71 L 112/42 L 111/46 L Pulse Oximetry 100 100 100 07/10/20 16:00 07/10/20 16:25 07/10/20 17:25 Temperature 36.5 C 36.6 C 36.7 C Pulse Rate 81 79 77 Respiratory Rate 16 18 16 Blood Pressure 111/46 L 111/53 L 103/39 L Pulse Oximetry 100 100 100 07/10/20 17:55 07/10/20 18:10 07/10/20 18:25 Temperature 36.7 C 36.7 C 36.6 C Puls
[2020-07-11 12:34] LABS: Glucose Point of Care 147 (65-105)
--- NOTE | 2020-07-11 13:15 | PC.NURSE ---
CONDITION UPDATE CALLED TO DR. BALDERAS. PT. HAS HAD A MOD BROWN BM AFTER RECEIVING COLACE AND MIRALAX PO THIS AM. NOTIFIED OF DR. GROVES'S VISIT AND NOTE. DISCHARGE PLAN FOR TODAY HELD. ORDERS RECEIVED.
--- NOTE | 2020-07-11 13:46 | PC.NURSE ---
PT HERE TO SEE PT. FOR EXERCISE.
--- NOTE | 2020-07-11 13:54 | PM.IMPN ---
Progress Note: A&P Assessment and Plan (1) CHF (congestive heart failure): Code(s): I50.9 - Heart failure, unspecified Status: Acute Assessment and Plan: 07/11/20 13:54 Never had a diagnosis of congestive heart failure. She does not appear to be on a beta-lauren or an Yousuf or an Arb. Continue with the IV Lasix for now as her chest x-ray was read as diffuse lung disease consistent with pulmonary edema versus pneumonia. Patient is currently on a BiPAP and will get ABGs as well. She has trace edema to her lower extremities more so on her feet. An echo has been ordered. 07/06/20 16:27 07/06 patient is a morbidly obese presented with complaint of shortness of breath is found to have pulmonary edema as well as pneumonia, patient cardiac echo showed normal systolic function with ejection fraction of 65% and abnormal diastolic dysfunction patient is being diuresed, patient was placed on BiPAP and is tolerating, BiPAP patient was taken off for little while and now patient is back on BiPAP will continue to monitor, patient also has a community-acquired pneumonia being treated with Rocephin azithromycin will continue to monitor and repeat chest x-ray in 2 days, will have a PT OT evaluate the patient and further recommendation to follow. 07/07 today patient is off BiPAP is feeling better not a short of breath dressing being diuresed with IV Lasix however patient creatinine is rising will hold IV Lasix and monitor will place the patient 1200 cc fluid restriction low-sodium diet and will monitor the patient, will have a PT OT evaluate the patient repeat chest x-ray tomorrow to further assess pneumonia and recommendation to follow 07/08 patient wore BiPAP at night time and currently off BiPAP sitting in the chair eating her breakfast, is feeling much better not a short of breath as when she arrived, patient creatinine is rising we had held IV Lasix yesterday, and today MADHU Micardis, renal ultrasound showed Normal kidney sizes. No hydronephrosis. Will consult stripper opaquer for further recommendation. Will gently orally hydrate the patient and monitor her kidney function, patient potassium is elevated will give the Kayexalate, 07/09 today patient is feeling much better sitting in the chair eating her breakfast, not requiring only 3 L of oxygen nasal cannula, however state did not sleep well last night somebody woke her up, but denies any shortness of breath chest pain or palpitation, consulted stripper opaquer for her her persistent elevated creatinine, her renal ultrasound was negative for obstruction or hydronephrosis, further workup is in progress and appreciate, will continue present management will continue to monitor, will transfer patient out of IMU to medical floor, will encourage patient to participate in PT OT and further recommendation to follow. 07/10 patient with history of hairy cell leukemia and lymphoma for which patient is seen and [facility], today patient hemoglobin is 6.4 will give 2 units of pack RBC, patient clinically stable denies any chest pain shortness of breath or dizziness, patient states see gets transfusion every 2-3 weeks, patient creatinine is trending down and patient seen by stripper opaquer, patient wore her BiPAP last night and currently on nasal cannula, overall patient's symptoms have improved, remains clinically stable will discharge the patient home tomorrow. 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
[2020-07-11 14:29] LABS: Anion Gap 7 mmol/L (8-16); Blood Urea Nitrogen 73 mg/dL (7-17); Calcium 8.1 mg/dL (8.4-10.2); Carbon Dioxide 30 mmol/L (22-30); Chloride 97 mmol/L (98-107); Estimated CRCL calculation 19 ml/min; Estimated Glomerular Filt Rate 20; Glucose 88 mg/dL (65-105); Potassium 5.4 mmol/L (3.4-5.0); Sodium 134 mmol/L (137-145)
--- NOTE | 2020-07-11 15:55 | PC.NURSE ---
BMP RESULTS CALLED TO DR. BALDERAS; POTASSIUM LEVEL ELEVATED. ORDERS RECEIVED TO GIVE KAEXYLATE 15GM X 1 PO NOW.
[2020-07-11] MEDS: SODIUM POLYSTYRENE SULFONONATE 15 GM/60 ML BTL PO (16:40)
[2020-07-11 17:30] LABS: Glucose Point of Care 94 (65-105)
[2020-07-11] MEDS: rOPINIRole HCL 1 MG TABLET PO (21:59)
[2020-07-11] MEDS: MELATONIN 5 MG TABLET PO (21:59)
[2020-07-11] MEDS: HYDROcodone/acetaminophen (*CRX) 5-325 MG TABLET 1 TAB PO (22:03)
[2020-07-11 22:04] LABS: Glucose Point of Care 128 (65-105)
[2020-07-12] VITALS: PULSE 76
[2020-07-12 04:00] VITALS: PULSE 86
[2020-07-12 05:39] VITALS: BP 123/59; PULSE 83; RESP 20; TEMP 36.3; O2SAT 100
[2020-07-12 06:17] LABS: Hematocrit 26.3 % (37.0-47.0); Hemoglobin 8.3 g/dL (12.0-15.0); Mean Corpuscular HGB Conc 31.6 g/dl (32-36); Mean Corpuscular Hemoglobin 27.9 pg (26-34); Mean Corpuscular Volume 88.6 fl (80-100); Mean Platelet Volume 11.5 fl (7.4-10.4); Platelet Count Result 205 k/mm3 (150-375); Red Blood Count 2.97 M/mm3 (4.2-5.4); Red Cell Distribution Width 17.5 % (11.5-14.5)
[2020-07-12 06:25] LABS: Albumin Level 3.1 g/dL (3.5-5.1); Anion Gap 6 mmol/L (8-16); Blood Urea Nitrogen 73 mg/dL (7-17); Calcium 8.1 mg/dL (8.4-10.2); Carbon Dioxide 29 mmol/L (22-30); Chloride 101 mmol/L (98-107); Estimated CRCL calculation 20 ml/min; Estimated Glomerular Filt Rate 21; Glucose 104 mg/dL (65-105); Magnesium 2.5 mg/dL (1.6-2.3); Phosphorus 5.6 mg/dL (2.5-4.5); Potassium 4.7 mmol/L (3.4-5.0); Sodium 136 mmol/L (137-145)
[2020-07-12 08:00] VITALS: BP 102/63; PULSE 84; RESP 18; TEMP 36.8; O2SAT 97
[2020-07-12 08:29] LABS: Glucose Point of Care 99 (65-105)
[2020-07-12] MEDS: MONTELUKAST SODIUM 10 MG TABLET PO (08:34)
[2020-07-12] MEDS: SIMVASTATIN 20 MG TABLET 40 MG PO (08:34)
[2020-07-12] MEDS: RIVAROXABAN 20 MG TABLET PO (08:34)
[2020-07-12] MEDS: DOCUSATE SODIUM 100 MG CAPSULE PO (08:34)
[2020-07-12] MEDS: LORATADINE 10 MG TABLET PO (08:34)
[2020-07-12] MEDS: rOPINIRole HCL 1 MG TABLET 2 MG PO (08:35)
--- NOTE | 2020-07-12 09:45 | PCRCNOTE ---
PT. DOES NOT QUALIFY FOR BIPAP OR TRILOGY. ABG DOES NOT SHOW AN ELEVATED CO2. APNEA LINK RESULT SHOW PT. SHOULD WEAR HER CPAP. DR. BALDERAS AWARE.
[2020-07-12 11:35] LABS: Glucose Point of Care 107 (65-105)
--- NOTE | 2020-07-12 14:52 | PM.PNNEP ---
Progress Note: A&P Assessment and Plan (1) Acute kidney injury: Code(s): N17.9 - Acute kidney failure, unspecified Status: Acute Assessment and Plan: slowly improving renal ultrasound is unremarkable. Urine lytes are borderline pre renal and CPK is normal likely due to the pneumonia and also diuretics (2) CKD (chronic kidney disease): Qualifiers: Chronic kidney disease stage: stage 3 (moderate) Chronic kidney disease stage 3 subtype: stage 3b (GFR 30-44) Qualified Code(s): N18.32 - Chronic kidney disease, stage 3b Code(s): N18.9 - Chronic kidney disease, unspecified Status: Acute Assessment and Plan: baseline creatinine ~ 1.5mg/dl likely due to her diabetes and hypertension (3) Acute on chronic diastolic (congestive) heart failure: Code(s): I50.33 - Acute on chronic diastolic (congestive) heart failure Status: Acute Assessment and Plan: as evidenced by admission imaging s/p IV diuretics clinically better at this time (4) Pneumonia: Code(s): J18.9 - Pneumonia, unspecified organism Status: Acute Assessment and Plan: on antibiotics follow culture data (5) Chronic lymphoid leukemia: Code(s): C91.10 - Chronic lymphocytic leukemia of B-cell type not having achieved remission Status: Acute Assessment and Plan: follow with [facility] (6) Diabetes: Code(s): E11.9 - Type 2 diabetes mellitus without complications Status: Acute Assessment and Plan: follow accu-cheks on sliding-scale insulin Not opposed to discharge from renal perspective - she can follow-up in the office with Dr. Aranda or PCP for ongoing monitoring of her CKD; recommend BMP later this week to ensure kidney function is stable if not improving. Subjective Date/time seen: 07/12/20 14:52 Appears to be doing reasonably well at the time of my visit; she is quite anxious for discharge; no new issues or problems voiced at this time; no events overnight or earlier today. Exam Narrative: Exam Narrative: General: WD/WN male/female in NAD Heart: normal S1 and S2; no rub Lungs: clear to auscultation Abdomen: soft, nontender, nondistended, positive bowel sounds Extremities: no cyanosis or clubbing; trace - 1+ edema Skin: warm and dry Objective Data Vital Signs Vital Signs: Vital Signs Temp Pulse Resp BP Pulse Ox 07/12/20 08:00 36.8 C 84 18 102/63 97 07/12/20 05:39 36.3 C L 83 20 123/59 L 100 07/12/20 04:00 86 07/12/20 00:00 76 07/11/20 20:00 81 07/11/20 19:45 36.7 C 86 20 126/42 L 100 07/11/20 16:00 36.8 C 77 20 112/69 100 07/11/20 15:54 154 H Intake/Output Intake/Output: Intake & Output 07/09/20 07/10/20 07/11/20 07/12/20 23:59 23:59 23:59 23:59 Intake Total 2100 1900 1660 850 Output Total 700 500 900 100 Balance 1400 1400 760 750 Meds/Results Medications: Active Medications Generic Name Dose Route Start Last Admin Trade Name Freq PRN Reason Stop Dose Admin Acetaminophen 650 mg 07/05/20 11:06 07/08/20 23:56 Acetaminophen 325 Mg Tablet PO 650 mg Q4H PRN Administration Mild Pain (1-3) or Fever Hydrocodone Bitart/Acetaminophen 1 tab 07/05/20 11:06 07/11/20 22:03 Hydrocodone/Acetaminophen (*Crx) 5-325 Mg Tablet PO 1 tab Q4H PRN Administration Pain Rated 4-6 Dextrose 12.5 gm 07/05/20 16:27 Dextrose 50% 25 Gm/50 Ml Syringe IV PUSH PRN PRN Hypoglycemia Protocol Docusate Sodium 100 mg 07/11/20 09:00 07/12/20 08:34 Docusate Sodium 100 Mg Capsule PO 100 mg Q12HR CECILE Administration Glucagon 1 mg 07/05/20 16:27 Glucagon For Inj 1 Mg Vial IM PRN PRN Hypoglycemia Protocol Glucose 15 gm 07/05/20 16:27 Glucose Oral Gel 15 Gm Of Glucse In 37.5 Gm Tube PO PRN PRN Hypoglycemia Protocol Ceftriaxone Sodium/Dextrose 1 gm in 50 mls @ 100
--- NOTE | 2020-07-12 15:16 | PM.DS ---
DS: Admitting Diagnosis Admitting Diagnosis Admitting Diagnosis: Chief Complaint: Shortness of breath DS: Discharge Diagnosis Discharge Diagnosis (1) CHF (congestive heart failure): Code(s): I50.9 - Heart failure, unspecified Status: Acute Assessment and Plan: 07/11/20 13:54 Never had a diagnosis of congestive heart failure. She does not appear to be on a beta-lauren or an Yousuf or an Arb. Continue with the IV Lasix for now as her chest x-ray was read as diffuse lung disease consistent with pulmonary edema versus pneumonia. Patient is currently on a BiPAP and will get ABGs as well. She has trace edema to her lower extremities more so on her feet. An echo has been ordered. 07/06/20 16:27 07/06 patient is a morbidly obese presented with complaint of shortness of breath is found to have pulmonary edema as well as pneumonia, patient cardiac echo showed normal systolic function with ejection fraction of 65% and abnormal diastolic dysfunction patient is being diuresed, patient was placed on BiPAP and is tolerating, BiPAP patient was taken off for little while and now patient is back on BiPAP will continue to monitor, patient also has a community-acquired pneumonia being treated with Rocephin azithromycin will continue to monitor and repeat chest x-ray in 2 days, will have a PT OT evaluate the patient and further recommendation to follow. 07/07 today patient is off BiPAP is feeling better not a short of breath dressing being diuresed with IV Lasix however patient creatinine is rising will hold IV Lasix and monitor will place the patient 1200 cc fluid restriction low-sodium diet and will monitor the patient, will have a PT OT evaluate the patient repeat chest x-ray tomorrow to further assess pneumonia and recommendation to follow 07/08 patient wore BiPAP at night time and currently off BiPAP sitting in the chair eating her breakfast, is feeling much better not a short of breath as when she arrived, patient creatinine is rising we had held IV Lasix yesterday, and today MADHU Kauffman, renal ultrasound showed Normal kidney sizes. No hydronephrosis. Will consult marketing business analyst for further recommendation. Will gently orally hydrate the patient and monitor her kidney function, patient potassium is elevated will give the Kayexalate, 07/09 today patient is feeling much better sitting in the chair eating her breakfast, not requiring only 3 L of oxygen nasal cannula, however state did not sleep well last night somebody woke her up, but denies any shortness of breath chest pain or palpitation, consulted marketing business analyst for her her persistent elevated creatinine, her renal ultrasound was negative for obstruction or hydronephrosis, further workup is in progress and appreciate, will continue present management will continue to monitor, will transfer patient out of IMU to medical floor, will encourage patient to participate in PT OT and further recommendation to follow. 07/10 patient with history of hairy cell leukemia and lymphoma for which patient is seen and [facility], today patient hemoglobin is 6.4 will give 2 units of pack RBC, patient clinically stable denies any chest pain shortness of breath or dizziness, patient states see gets transfusion every 2-3 weeks, patient creatinine is trending down and patient seen by marketing business analyst, patient wore her BiPAP last night and currently on nasal cannula, overall patient's symptoms have improved, remains clinically stable will discharge the patient home tomorrow. 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
== END 2020-07-12 16:06 | disposition home or self-care (01) | DRG 189 ==
LOC: ANHED 11:36 → ANHIMU 07-06 14:29 → ANHCPC 07-11 22:30 → ANHIMU 07-15 15:41
PROVIDERS: Family Medicine; Internal Medicine Nephrology; Nurse Practitioner; Admitting Provider Internal Medicine; Emergency Provider Emergency Medicine; PCP Family Medicine; Visit Provider Family Medicine
DX: J96.21 Acute and chronic respiratory failure with hypoxia (principal); J18.9 Pneumonia, unspecified organism; I50.33 Acute on chronic diastolic (congestive) heart failure; I13.0 Hypertensive heart and chronic kidney disease with heart failure and stage 1 through stage 4 chronic kidney disease, or unspecified chronic kidney disease; I82.439 Acute embolism and thrombosis of unspecified popliteal vein; C91.10 Chronic lymphocytic leukemia of B-cell type not having achieved remission; Z68.41 Body mass index [BMI] 40.0-44.9, adult; N17.9 Acute kidney failure, unspecified; Z20.822 Contact with and (suspected) exposure to COVID-19; D63.8 Anemia in other chronic diseases classified elsewhere; E66.01 Morbid (severe) obesity due to excess calories; E78.2 Mixed hyperlipidemia; E11.22 Type 2 diabetes mellitus with diabetic chronic kidney disease; N18.32 Chronic kidney disease, stage 3b; G25.81 Restless legs syndrome; G47.33 Obstructive sleep apnea (adult) (pediatric); Z79.01 Long term (current) use of anticoagulants; Z79.899 Other long term (current) drug therapy
CPT/HCPCS: 36415; 36430; 36600; 71046; 76775; 80048; 80053; 80069; 82375; 82550; 82570; 82805; 83050; 83735; 83880; 84156; 84300; 84443; 85025; 85027; 85610; 85730; 85999; 86850; 86900; 86901; 86923; 87040; 93005; 93306; 94002; 94003; 97110; 97116; 97161; 97165; 97530; 97535; 99291; A9270; C9803; J0456; J0696; J1940; J2060; J2405; J7050; P9016; U0003; U0005

== ENCOUNTER 2020-07-15 00:31 | Inpatient (IN) | payer MEDICARE, SELFPAY ==
[2020-07-15] VITALS (59 sets, daily range): BP systolic 73–165; BP diastolic 36–120; PULSE 43–139; RESP 17–34; TEMP 31.8–36.7; O2SAT 89–100; BMI 38.5
--- NOTE | 2020-07-15 | ECG_ITS ---
Measurements Intervals [place] Rate: 57 P: 26 IN: 170 QRS: 1 QRSD: 83 T: 56 QT: 502 QTc: 493 Interpretive Statements SINUS BRADYCARDIA INCOMPLETE RIGHT BUNDLE BRANCH BLOCK BORDERLINE R WAVE PROGRESSION, ANTERIOR LEADS LOW QRS VOLTAGE IN PRECORDIAL LEADS PROLONGED QT INTERVAL BASELINE WANDER- V1 ABNORMAL ECG Electronically Signed On 07-15-2020 11:43:23 FURNITURE RENTAL CONSULTANT by Lion Lee D.O.
--- NOTE | ~2020-07-15 | XR_ITS ---
EXAMINATION: XR chest ET placement DATE: 07/15/2020 08:52 INDICATION: Endotracheal tube placement TECHNIQUE: frontal view of the chest was obtained. COMPARISON: Chest radiograph dated 07/15/2020 FINDINGS: Endotracheal tube tip 3.8 cm above the tony. Nasogastric tube extends below the left hemidiaphragm with distal tip collimated off the study. Prominent persistent diffuse airspace opacities throughout both lungs. No pneumothorax. No definitive pleural effusion although posterior layering pleural effusions cannot be absolutely excluded. Cardio megaly. Mild thoracic spondylosis. IMPRESSION: 1. Endotracheal tube and nasogastric tube in expected positions. 2. No significant change in prominent diffuse airspace opacities throughout both lungs which could re present pneumonia and/or pulmonary edema. Reviewed, dictated and finalized at location B. KE WARFARE/MISSILE SYSTEMS OFFICER IMPRESSION: 1. Endotracheal tube and nasogastric tube in expected positions. 2. No significant change in prominent diffuse airspace opacities throughout bot h lungs which could represent pneumonia and/or pulmonary edema.
--- NOTE | ~2020-07-15 | CT_ITS ---
EXAMINATION: CT brain wo con EXAM DATE: 07/15/2020 02:06 INDICATION: post cardiac arrest. TECHNIQUE: Spiral CT of the head was performed without contrast. Axial, coronal and sagittal images were reviewed. The dose-length product (DLP) for this examination was 605.33 mGy-cm. The exposure w as tailored according to patient size, and iterative reconstruction (ASIR) was used as additional dos e reduction technique. There is no prior study for comparison. FINDINGS: There is no acute intraparenchymal hemorrhage. No evidence of intraparenchymal brain mass lesion. No evidence of acute infarction. Please note that initial head CT has limited sensitivity f or small or acute infarctions. There is mild periventricular and subcortical hypodensity, nonspecific but probably related to small vessel ischemic disease. There is mild prominence of the sulci and v entricles related to cerebral atrophy. There is intracranial carotid arteriosclerosis. There are n o extra-axial collections. There is no mass effect or midline shift. Patient has had bilateral ocul ar lens surgery. Disconjugate gaze. Soft tissue is unremarkable. The visualized sinuses and mastoid air cells are well aerated. IMPRESSION: 1. No acute intracranial findings. 2. Chronic age related findings. Reviewed, dictated and finalized at location A. TIONS WORKER
--- NOTE | ~2020-07-15 | XR_ITS ---
EXAMINATION: XR chest 1V portable EXAM DATE: 07/16/2020 06:31 INDICATION: Respiratory failure. TECHNIQUE: Portable AP frontal chest x-ray was obtained. Comparison is made to prior examination from earlier 07/15/2020. FINDINGS: Endotracheal tube tip is about 3 centimeters above the tony. There is a nasogastric tube seen with tip collimated off the study, but below the left hemidiaphragm. There is extensive bilateral ill-defined acute airspace disease likely edema/ARDS and/or pneumonia. Possible small pleural effusions. There is no pneumothorax suspected. The cardiac silhouette is en larged. There are mild bony degenerative changes. There is aortic arteriosclerosis. Airspace disease not significantly changed. IMPRESSION: 1. Tubes in position. 2. Extensive bilateral edema and/or infection. Reviewed, dictated and finalized at location A. AL MERCHANDISING SPECIALIST
--- NOTE | ~2020-07-15 | XR_ITS ---
EXAMINATION: XR chest 1V portable EXAM DATE: 07/15/2020 06:25 INDICATION: ET tube repositioned. TECHNIQUE: Portable AP frontal chest x-ray was obtained. Comparison is made to prior examination from earlier 07/15/2020. FINDINGS: Endotracheal tube tip is about 1 centimeters above the tony. There is a nasogastric tube seen with tip collimated off the study, but below the left hemidiaphragm. There is extensive bilateral ill-defined acute airspace disease likely edema/ARDS and/or pneumonia. There are no sizable pleural effusions. There is no pneumothorax suspected. The cardiac silhouett e is enlarged. There are mild bony degenerative changes. There is aortic arteriosclerosis. Feeding tube has been placed, otherwise is no significant interval change compared to earlier same da te. IMPRESSION: 1. ET tube could be safely retracted 1-2 cm. 2. Extensive bilateral edema and/or infection. Reviewed, dictated and finalized at location A. OUGHBRED HORSE FARM MANAGER
--- NOTE | ~2020-07-15 | XR_ITS ---
EXAMINATION: XR chest ET placement EXAM DATE: 07/15/2020 01:22 INDICATION: Cardiac arrest. TECHNIQUE: Portable AP frontal chest x-ray was obtained. Comparison is made to prior examination from 08/14/2019. FINDINGS: Endotracheal tube tip is about 1 cm centimeters above the tony. This could be safely ret racted 1-2 cm. There is extensive bilateral edema/ARDS and/or pneumonia. Please clinically correlate. There are no sizable pleural effusions. There is no pneumothorax suspected. The cardiac silhouette is enlarged and larger than on prior study There are mild bony degenerative changes. There is aortic arterioscl erosis. Increase in size of cardiomegaly, development of the acute airspace disease. IMPRESSION: 1. ET tube could be safely retracted 1 cm. 2. Extensive bilateral edema and/or infection. 3. Cardiomegaly. Reviewed, dictated and finalized at location A. ECT CONSTRUCTION MANAGER
--- NOTE | ~2020-07-15 | XR_ITS ---
EXAMINATION: XR abdomen NG/feed tube insert EXAM DATE: 07/15/2020 06:25 INDICATION: Orogastric tube placement. TECHNIQUE: Frontal projection(s) of the abdomen for interpretation. There is no prior study for anthony martínez. FINDINGS: Feeding tube tip and side-port both project over left upper quadrant, expected location of stomach. Nonspecific upper abdominal bowel gas pattern. Extensive bilateral airspace disease. There are bony degenerative changes. IMPRESSION: Feeding tube overlying expected position. Reviewed, dictated and finalized at location A. INTERNSHIP
--- NOTE | ~2020-07-15 | XR_ITS ---
EXAMINATION: XR chest 1V portable DATE: 07/18/2020 06:16 INDICATION: Respiratory failure TECHNIQUE: frontal view of the chest was obtained. COMPARISON: Chest radiograph dated 07/17/2020 FINDINGS: Endotracheal tube tip 2.0 cm above the tony. Nasogastric tube extends below the left hemidiaphragm with distal tip collimated off the study. Slight improvement in bilateral airspace opacities most prominent and with air bronchograms in the bi lateral perihilar regions and left lower lung zone. Bilateral pleural effusions resolved. No pneumoth orax. Heart size is normal. IMPRESSION: 1. Slight improvement in bilateral airspace disease which could represent pulmonary edema, pneumonia, atelectasis or some combination thereof. Reviewed, dictated and finalized at location A. NEER INTERN IMPRESSION: 1. Slight improvement in bilateral airspace disease which could represent pulmo nary edema, pneumonia, atelectasis or some combination thereof.
--- NOTE | ~2020-07-15 | XR_ITS ---
XR chest 1V portable DATE: 07/19/2020 05:40 INDICATION: Respiratory failure TECHNIQUE: Portable AP chest on July 19, 2020 at 0514 hours COMPARISON: 07/18/2020 portable AP chest at 0529 hours FINDINGS: ET tube tip in satisfactory position 2.7 cm above tony. NG tube in stomach. No central li pancho. Severe bilateral pulmonary patchy consolidating infiltrates are noted, particularly prominent in the central and lower lung zones. Differential diagnosis includes pulmonary edema and severe pneumonia. Small right pleural effusion is suggested. IMPRESSION: Increased severe bilateral pulmonary consolidation since 07/18/2020 Reviewed, dictated and finalized at location A. FLOORING SPECIALIST
--- NOTE | ~2020-07-15 | XR_ITS ---
EXAMINATION: XR chest 1V portable DATE: 07/17/2020 05:39 INDICATION: Respiratory failure TECHNIQUE: frontal view of the chest was obtained. COMPARISON: Chest radiograph dated 07/16/2020 FINDINGS: Endotracheal tube tip 2.2 cm above the tony. Nasogastric tube extends below the left hemidiaphragm with distal tip collimated off the study. Persistent airspace opacities throughout both lungs relatively sparing the apices. No pneumothorax. C ould not exclude small bilateral pleural effusions. Heart size is normal. Atherosclerotic aorta. IMPRESSION: 1. Persistent extensive bilateral airspace opacities which could represent pulmonary edema over pneum onia, small pleural effusions, atelectasis or some combination thereof. Reviewed, dictated and finalized at location A. BOTTOM ASSEMBLER IMPRESSION: 1. Persistent extensive bilateral airspace opacities which could represent pulm onary edema over pneumonia, small pleural effusions, atelectasis or some combin ation thereof.
--- NOTE | ~2020-07-15 | XR_ITS ---
XR abdomen NG/feed tube insert DATE: 07/17/2020 20:08 INDICATION: Orogastric tube placement TECHNIQUE: AP views on 07/17/2019 07/07/2005 and 2007 hours COMPARISON: None FINDINGS: A nasogastric tube is present within the body of the stomach. Air bronchograms are noted in the left cardiac are consistent with left lower lobe atelectasis /conso lidation. Patchy infiltrate in the right lower lung IMPRESSION: Orogastric tube in stomach body Left lower lobe atelectasis/consolidation Patchy infiltrate in the right lower lung Reviewed, dictated and finalized at Location A. Reviewed, dictated and finalized at location A. ISHING SYSTEMS ANALYST
--- NOTE | 2020-07-15 00:45 | PC.NURSE ---
LMA exchanged for 7.5 ET tube on arrival by . Tube is 23cm to the teeth. Color change noted on CO2 detector and bilateral breath sounds auscultated.
[2020-07-15] MEDS: FUROSEMIDE INJ 40 MG/4 ML VIAL IV PUSH (00:55)
--- NOTE | 2020-07-15 00:59 | ECG_ITS ---
Measurements Intervals [place] Rate: 116 P: 60 NV: 145 QRS: -30 QRSD: 85 T: 68 QT: 317 QTc: 442 Interpretive Statements SINUS TACHYCARDIA FREQUENT ATRIAL PREMATURE COMPLEXES LOW QRS VOLTAGE- DIFFUSE LEADS POOR R WAVE PROGRESSION, ANTERIOR LEADS BASELINE WANDER- V5-V6 ABNORMAL ECG Electronically Signed On 07-15-2020 7:09:31 BUTADIENE CONVERTER HELPER by Lion Lee D.O.
[2020-07-15 01:00] LABS: Hematocrit 30.6 % (37.0-47.0); Hemoglobin 8.9 g/dL (12.0-15.0); Mean Corpuscular HGB Conc 29.1 g/dl (32-36); Mean Corpuscular Hemoglobin 28.8 pg (26-34); Mean Platelet Volume 11.7 fl (7.4-10.4); Platelet Count Result 322 k/mm3 (150-375); Red Blood Count 3.09 M/mm3 (4.2-5.4); Red Cell Distribution Width 17.7 % (11.5-14.5); White Blood Count 40.7 K/mm3 (4.5-10.0)
[2020-07-15 01:05] LABS: INR 4.4; Prothrombin Time 42.5 Seconds (11.1-14.7)
[2020-07-15 01:06] LABS: Partial Thromboplastin Time 48.6 SECONDS (22.3-36.8)
[2020-07-15 01:09] LABS: Lipase 61 U/L (23-300)
[2020-07-15 01:11] LABS: Albumin Level 2.9 g/dL (3.5-5.1); Alkaline Phosphatase 98 U/L (38-126); Anion Gap 14 mmol/L (8-16); Aspartate Amino Transferase 41 U/L (14-36); Bilirubin,Total 0.6 mg/dL (0.2-1.3); Blood Urea Nitrogen 42 mg/dL (7-17); Calcium 7.9 mg/dL (8.4-10.2); Carbon Dioxide 19 mmol/L (22-30); Chloride 110 mmol/L (98-107); Cholesterol 76 mg/dL (0-200); Estimated CRCL calculation 25 ml/min; Estimated Glomerular Filt Rate 26; Glucose 319 mg/dL (65-105); HDL Direct 21 mg/dL; Potassium 4.3 mmol/L (3.4-5.0); Sodium 143 mmol/L (137-145); Triglycerides 124 mg/dL (<150)
[2020-07-15 01:12] LABS: Lactic Acid Reflex 9.2 mmol/L (0.7-2.1)
[2020-07-15 01:17] LABS: Alanine Aminotransferase 28 U/L (4-35)
[2020-07-15 01:20] LABS: NT Pro B Type Natriuretic Pept 3970 PG/ML (5-100)
[2020-07-15 01:22] LABS: LDL Cholesterol Direct < 30 mg/dL
[2020-07-15 01:23] LABS: Troponin I 0.021 ng/mL (0.000-0.034)
[2020-07-15 01:23] LABS: Alveolar/Arterial O2 Gradient 575.1 mmHg; Base Excess ABG -13.8 mEq/l (+/-2.0); Fractional Inspired Oxygen 100 %; HCO3 ABG 16.6 mEq/l (22.0-26.0); Oxygen Content ABG 12.1 %vol (16.0-22.0); Oxygen Saturation ABG 87.4 % (95.0-100.0); Oxyhemoglobin 86.1 % THb (90.0-100.0); PCO2 ABG 62.7 mmHg (35.0-45.0); PO2 ABG 75.2 mmHg (80.0-100.0); PO2 FiO2 Ratio Arterial Blood 0.75 %; Total Hemoglobin 9.9 g/dL (12.0-18.0); pH ABG 7.042 (7.350-7.450)
--- NOTE | 2020-07-15 01:23 | PC.NURSE ---
Pts 3 rings, upper denture and ID given to .
[2020-07-15 01:24] LABS: Arterial Blood Gas PEEP 15 cmH2O; Arterial Blood Gas Tidal Volume 300 ml; Arterial Blood Gas Vent Mode CMV; Arterial Blood Gas Ventilator rate 20 /MIN; Device VENTILATOR; Site Drawn RIGHT BRACHIAL
[2020-07-15 01:25] LABS: Atypical Lymphocytes Present; Band Neutrophils Percent 1 % (0-6); Lymphocytes Absolute Manual 21.97 K/mm3 (1.1-4.5); Metamyelocytes Percent 2 %; Monocytes Percent Manual 1 % (3-9); Myelocytes Percent 2 %; Neutrophils Absolute Manual 16.68 K/mm3 (1.7-7.2); Neutrophils Percent Manual 40 % (46-73); Ovalocytes 1+ (NORMAL); Platelet Estimate Adequate (Adequate); Total Cells Counted 100
--- NOTE | 2020-07-15 01:36 | ED.GENADULT ---
HPI - General Adult General Chief complaint: Cardiac Arrest/CPR Stated complaint: CARDIAC ARREST Time Seen by Provider: 07/15/20 00:48 History of Present Illness HPI narrative: Patient is 74-year-old female who presents the emergency department with chief complaint of cardiac arrest patient today has been having increasing shortness of breath and this evening was extremely short of breath to the point that she and her significant other decided that they should call an ambulance when EMS arrived the patient was having severe difficulty breathing and was having gurgling respirations. They noticed that she had a large amount of fluid that appeared to be developing in her lungs. Patient was not complaining of chest pain when EMS arrived they found the patient to be progressively more short of breath to the point that she became unresponsive and had loss of pulse and respiratory drive. Patient was initially asystolic on the monitor and was treated with CPR and ACLS protocols by EMS. EMS had return of spontaneous circulation after about 10 to 15 minutes of CPR in the field. Upon arrival to the emergency department the patient had continual return of spontaneous circulation but is still unresponsive. Related Data Allergies Allergy/AdvReac Type Severity Reaction Status Date / Time atorvastatin Allergy Severe HIVES Verified 07/14/20 10:29 cefaclor AdvReac Unknown Nausea and Verified 07/14/20 10:29 Vomiting Review of Systems Review of Systems: ROS unobtainable: Yes unobtainable due to endotracheal tube and unobtainable due to medical condition PMFSH Past Medical History Medical History (Updated 07/15/20 @ 02:53 by Alexandra Okeefe DO) Allergic rhinitis Chronic anticoagulation Chronic respiratory failure with hypoxia, on home O2 therapy CKD (chronic kidney disease), stage III Collar bone fracture Diverticulosis DVT (deep venous thrombosis) Esophageal stricture Essential hypertension GERD (gastroesophageal reflux disease) Glaucoma Hairy cell leukemia History of chemotherapy Hyperlipidemia Mixed hyperlipidemia On alf drug therapy VASILE (obstructive sleep apnea) Restless leg syndrome Type 2 diabetes mellitus with chronic kidney disease Uterine cancer Surgical History Surgical History History of cataract surgery History of hysterectomy Family History Family History Father Family history of lung cancer Mother Family history of lung cancer Other Diabetes mellitus Family history of allergic disorder Family history of malignant neoplasm Hypertension Social History Social History Social History: She never had any children. She is a full code. Her friend Candelario mccann is the power estate attorney. The patient is a lifelong nonsmoker. She has a drink any alcohol or use illicit drugs. Smoking status: Never smoker Second hand tobacco smoke exposure: No Alcohol intake: never Substance use: never Substance use type: does not use Gender identity (if verbalized by the patient): Female Spiritual care concerns: No Exam Narrative: Exam Narrative: GENERAL: Ill-appearing unresponsive. HEAD: Normocephalic, atraumatic. EYES: Left pupil is dilated and unreactive. ENT: Nares clear, no rhinorrhea or epistaxis. Mucous membranes moist. Endotracheal tube in place NECK: Supple. CHEST: Crackles present bilaterally. No respiratory distress. HEART: Regular rate and rhythm. No murmur heard. Normal peripheral pulses. ABDOMEN: Soft, nontender, nondistended, normal active bowel sounds. EXTREMITIES: Normal range of motion. No edema. SKIN: Warm, dry, no rash. NEURO: Unresponsive. PSYCH: Unresponsive Course Vital Signs Vital signs: Vital Signs Pulse Rate 139 H 07/15/20 00:35 Respiratory Rate 17 07/15/20 00:35 Blood Pressure 149
[2020-07-15 01:39] LABS: Add Urine Microscopic? YES; Appearance Urine Clear (Clear); Bilirubin Urine Negative (Negative); Blood Urine 1+ (Negative); Color Urine Yellow (Yellow); Glucose Urine UA Negative (Negative); Ketones Urine Negative (Negative); Leukocyte Esterase Ur Negative LEU/UL (Negative); Mucus Urine Rare /lpf; Nitrate Urine Negative (Negative); Protein Urine 2+ mg/dL (Negative); Specific Grav Ur 1.015 (1.001-1.035); Squamous Epithelial Cell Urine Few /hpf (Few); Urobilinogen Urine Negative mg/dL (<2.0); WBC Urine 0-3 /hpf
[2020-07-15 01:45] LABS: CRP 2.3 mg/dL (<1.0)
--- NOTE | 2020-07-15 02:12 | PC.NURSE ---
Addendum entered by Khalida Leon RN 07/15/20 02:25: Correction. Tube is 22cm to the teeth. Entered in error. Original Note: Tube pulled back 1cm per verbal order by RT. ET tube 32cm to the teeth at this time
[2020-07-15 03:07] LABS: Alveolar/Arterial O2 Gradient 593.7 mmHg; Base Excess ABG -5.4 mEq/l (+/-2.0); Device VENTILATOR; Fractional Inspired Oxygen 100 %; HCO3 ABG 21.1 mEq/l (22.0-26.0); Oxygen Content ABG 12.2 %vol (16.0-22.0); Oxygen Saturation ABG 92.9 % (95.0-100.0); Oxyhemoglobin 91.3 % THb (90.0-100.0); PCO2 ABG 45.9 mmHg (35.0-45.0); PO2 ABG 73.4 mmHg (80.0-100.0); PO2 FiO2 Ratio Arterial Blood 0.73 %; Site Drawn LEFT BRACHIAL; Total Hemoglobin 9.4 g/dL (12.0-18.0); pH ABG 7.281 (7.350-7.450)
[2020-07-15 03:08] LABS: Arterial Blood Gas PEEP 5 cmH2O; Arterial Blood Gas Tidal Volume 350 ml; Arterial Blood Gas Vent Mode CMV; Arterial Blood Gas Ventilator rate 26 /MIN
--- NOTE | 2020-07-15 03:11 | PM.IMHP ---
H&P: HPI History of Present Illness Date/Time: 07/15/20 03:40 Chief Complaint: Respiratory failure with subsequent cardiac arrest Narrative: Netta Graham is a 74 year old female chronic kidney disease, diabetes mellitus, morbid obesity with obstructive sleep apnea on chronic home oxygen and diastolic dysfunction grade 2 (echo April 2020) and recent hospitalization for similar symptoms who presented to the ER with respiratory distress. Source of information is patient's significant other who was at bedside and past medical records. The patient had been hospitalized from 07/05/2020 through 07/12/2020 for respiratory failure, CHF exacerbation, acute on chronic renal insufficiency, and suspected pneumonia. The patient had returned to her baseline health him was on her home O2 of 5 L when around 9:30 p.m. she suddenly started developing gurgling respirations. They attempted to go to bed but her respiratory distress worsened. Was found to be in respiratory distress was 60 breaths per minute and O2 sats of 67% on 5 L nasal cannula. The patient went into asystole at 10 minutes after midnight. EMS provided 3 rounds of epinephrine in the field and placed in airway with an LMA. They were unable to place an ET tube due to frothy blood-tinged secretions. The patient had return ROSC AT 12:31 A.M.. The patient was not intubated when she arrived to the ER. ET tube with 7.5 measuring 23 at the lip and was just above the tony. I requested the G-tube be pulled back it was pulled back 1 cm in the ER. The patient went for stat CT of her head which was unremarkable. Seen and examined down in the ER. The patient was having dyssynchrony with the vent and a given order for rocuronimum. The patient was hypotensive in the ER on Levophed was initiated. Patient was requiring Levophed at 10. Given her marked leukocytosis he was started on broad-spectrum antibiotic coverage. Review of Systems Review of Systems: ROS unobtainable: Yes unobtainable due to endotracheal tube PMFSH Past Medical History Medical History (Updated 07/15/20 @ 05:12 by Alexandra Okeefe DO) Allergic rhinitis Chronic anticoagulation Chronic respiratory failure with hypoxia, on home O2 therapy CKD (chronic kidney disease), stage III Collar bone fracture Diverticulosis DVT (deep venous thrombosis) Esophageal stricture Essential hypertension GERD (gastroesophageal reflux disease) Glaucoma Hairy cell leukemia History of chemotherapy Hyperlipidemia Mixed hyperlipidemia On mcc drug therapy VASILE (obstructive sleep apnea) Restless leg syndrome Type 2 diabetes mellitus with chronic kidney disease Uterine cancer Surgical History Surgical History History of cataract surgery History of hysterectomy Family History Family History Father Family history of lung cancer Mother Family history of lung cancer Other Diabetes mellitus Family history of allergic disorder Family history of malignant neoplasm Hypertension Social History Social History (Updated 07/15/20 @ 05:04 by Alexandra Okeefe DO) Social History: She never had any children. Her significant other of 20 years Candelario Kaplan is the power employee benefits attorney. The patient is a lifelong nonsmoker. She has a drink any alcohol or use illicit drugs. Code status: Full code (Candelario states that if she were to code multiple times he would not want to continue to put her through that situation.) Primary care physician: Dr. Inder Scott Smoking status: Never smoker Second hand tobacco smoke exposure: No Alcohol intake: never Substance use: never Substance use type: does not use Gender identity (if verbalized by the patient): Female Spiritual care concerns: No Meds Home Medications and Allergies Home Medications Medication Instructions Recorded Confirmed Type cetirizine 10 mg cap
[2020-07-15] MEDS: NOREPINEPHRINE 8 MG/D5W 250 ML 8 MG/250 ML BAG 9.38 MG IV CONT (03:29)
[2020-07-15] MEDS: PROPOFOL IV EMULSION 100 ML 2.94 MG IV CONT (03:32)
[2020-07-15 03:55] LABS: Reflex Lactic Acid Yes or No Add Lactic
--- NOTE | 2020-07-15 04:05 | PC.NURSE ---
30mg Rocuronium given per verbal order by Dr Okeefe at 040
[2020-07-15 04:25] LABS: Amphetamine Screen Urine Negative (Negative); Barbiturate Screen Urine Negative (Negative); Benzodiazepines Screen Urine Negative (Negative); Cannabinoid Screen Urine Negative (Negative); Cocaine Screen Urine Negative (Negative); Methadone Screen Urine Negative (Negative); Opiate Screen Urine Negative (Negative); Phencyclidine Screen Urine Negative (Negative)
--- NOTE | 2020-07-15 05:50 | ADMGEN ---
This patient, Netta Graham, was admitted to Intensive Care Unit-2. Unable to preform unit orientation as patient is sedated and intubated with no family present.
[2020-07-15 06:21] LABS: Alveolar/Arterial O2 Gradient 441.5 mmHg; Base Excess ABG -4.2 mEq/l (+/-2.0); Carboxyhemoglobin 0.2 % THb (0-2.0); Fractional Inspired Oxygen 80 %; HCO3 ABG 21.6 mEq/l (22.0-26.0); Methemoglobin ABG 0.4 %THb (0-1.5); Oxygen Content ABG 13.1 %vol (16.0-22.0); Oxygen Saturation ABG 95.7 % (95.0-100.0); Oxyhemoglobin 94.2 % THb (90.0-100.0); PCO2 ABG 42.3 mmHg (35.0-45.0); PO2 ABG 84.5 mmHg (80.0-100.0); PO2 FiO2 Ratio Arterial Blood 1.06 %; Reduced Hemoglobin 5.2 %THb (0-5.0); Total Hemoglobin 9.8 g/dL (12.0-18.0); pH ABG 7.325 (7.350-7.450)
[2020-07-15 06:22] LABS: Arterial Blood Gas PEEP 5 cmH2O; Arterial Blood Gas Vent Mode CMV; Arterial Blood Gas Ventilator rate 26 /MIN; Device VENTILATOR; Site Drawn ARTLINE
[2020-07-15 06:23] LABS: Arterial Blood Gas Tidal Volume 350 ml
[2020-07-15 06:37] LABS: INR 2.9; Prothrombin Time 30.9 Seconds (11.1-14.7)
[2020-07-15 06:38] LABS: Partial Thromboplastin Time 40.9 SECONDS (22.3-36.8)
[2020-07-15] MEDS: CISATRACURIUM BESYLATE 200 MG in DEXTROSE 5% 80 ML 8.81 ML IV CONT (06:39)
[2020-07-15 06:41] LABS: Creatine Kinase 151 U/L (30-135); Estimated CRCL calculation 21 ml/min; Estimated Glomerular Filt Rate 22; Magnesium 2.2 mg/dL (1.6-2.3); Phosphorus 4.8 mg/dL (2.5-4.5)
[2020-07-15 06:42] LABS: Lactic Acid Reflex 1.8 mmol/L (0.7-2.1)
[2020-07-15 06:56] LABS: Glucose Point of Care 255 (65-105)
[2020-07-15 06:57] LABS: Troponin I 0.094 ng/mL (0.000-0.034)
--- NOTE | 2020-07-15 07:21 | WPDPROCEDUR ---
Procedures Arterial Line Arterial Line Date: 07/15/20 Arterial Line Time: 05:25 Discussed with the patient/family/POA, the placement of an arterial catheter, including its clinical necessity/indication and associated potential risks, benefits and alternatives.: Yes Patient/family/POA and/or understands and acknowledges the need to proceed with the arterial catheter insertion as an important element of the patient's clinical management.: Yes Time Out Performed: Yes Patient Position: supine Public Address Servicer Prep: sterile gown, sterile gloves, mask and hat Site: left and radial Site Prep: chlorhexidine and sterile drape Skin Anesthesia: none Technique used: ultrasound-guided Size (Gauge): 20 Length: 4.4 cm Closure/Dressing: suture, transparent dressing and securement product Patient tolerated procedure: well and no complications Complications: none
[2020-07-15] MEDS: NOREPINEPHRINE 8 MG/D5W 250 ML 8 MG/250 ML BAG 3.75 MG IV CONT (07:30)
[2020-07-15 08:25] LABS: Glucose Point of Care 232 (65-105)
[2020-07-15 09:29] LABS: Glucose Point of Care 176 (65-105)
[2020-07-15 10:20] LABS: Glucose Point of Care 173 (65-105)
--- NOTE | 2020-07-15 10:49 | WPDCNINT ---
Assessment and Plan Assessment and plan (1) Acute respiratory failure: Code(s): J96.00 - Acute respiratory failure, unspecified whether with hypoxia or hypercapnia Status: Acute Assessment and Plan: Acute Respiratory failure secondary to cardiac arrest, pulmonary edema, questionable pneumonia Continue full mechanical ventilation support to prevent hypoxemia/hypercarbia and end organ damage. ABG and PCXR reviewed Increase PEEP to 8. FiO2 is down at 60% She did receive Lasix in the ER currently on Levophed S will hold further diuresis per today (2) Pulmonary edema: Qualifiers: Chronicity: acute Qualified Code(s): J81.0 - Acute pulmonary edema Code(s): J81.1 - Chronic pulmonary edema Status: Acute Assessment and Plan: See above (3) Sepsis: Code(s): A41.9 - Sepsis, unspecified organism Status: Acute Assessment and Plan: Possible pneumonia Currently on vanc and Zosyn Cultures Lactic acid has normalized (4) Pneumonia: Code(s): J18.9 - Pneumonia, unspecified organism Status: Acute Assessment and Plan: See above (5) Cardiac arrest: Code(s): I46.9 - Cardiac arrest, cause unspecified Status: Acute Assessment and Plan: Secondary to pulmonary edema and hypoxia EKG reviewed Serial troponin (6) Acute on chronic diastolic (congestive) heart failure: Code(s): I50.33 - Acute on chronic diastolic (congestive) heart failure Status: Acute Assessment and Plan: Patient was given Lasix in ED but she is currently on Levophed Will hold further Lasix at this time (7) CKD (chronic kidney disease): Qualifiers: Chronic kidney disease stage: stage 3 (moderate) Chronic kidney disease stage 3 subtype: stage 3b (GFR 30-44) Qualified Code(s): N18.32 - Chronic kidney disease, stage 3b Code(s): N18.9 - Chronic kidney disease, unspecified Status: Acute Assessment and Plan: Creatinine appears to be close to baseline Monitor urine output creatinine and electrolytes Wray for accurate intake and output monitoring (8) Type 2 diabetes mellitus with stage 1 chronic kidney disease: Code(s): E11.22 - Type 2 diabetes mellitus with diabetic chronic kidney disease; N18.1 - Chronic kidney disease, stage 1 Status: Acute Assessment and Plan: Sliding scale insulin (9) Shock: Code(s): R57.9 - Shock, unspecified Status: Acute Assessment and Plan: Septic versus cardiogenic versus combination Continue Levophed for blood pressure support (10) Anoxic brain injury: Code(s): G93.1 - Anoxic brain damage, not elsewhere classified Status: Acute Assessment and Plan: Patient was posturing condition to ICU Currently sedated and paralyzed and on TTM Will start rewarming tomorrow morning for 24 hours and reassess Head CT was unremarkable on presentation (11) DVT (deep venous thrombosis): Qualifiers: DVT location: lower extremity Affected thrombotic vein of extremity: popliteal Chronicity: unspecified Laterality: unspecified laterality Qualified Code(s): I82.439 - Acute embolism and thrombosis of unspecified popliteal vein Code(s): I82.409 - Acute embolism and thrombosis of unspecified deep veins of unspecified lower extremity Status: Acute Assessment and Plan: Patient has history of DVT which was diagnosed in 07/2019. She is on chronic anticoagulation with Xarelto Will start heparin infusion at this time Additional Plan DVT prophylaxis -heparin drip Stress ulcer prophylaxis -PPI Nutrition -NPO Code Status - Full Code Total Critical Care Time - 40 minutes Due to a high probability of clinically significant, life threatening deterioration, the patient required my highest level of preparedness to intervene emergently and I personally spent this critical care time directly and personally managing the patient. This critical ca
[2020-07-15 11:05] LABS: Glucose Point of Care 150 (65-105)
[2020-07-15] MEDS: ASPIRIN 325 MG TABLET PO (11:41)
[2020-07-15 11:49] LABS: Partial Thromboplastin Time 37.4 SECONDS (22.3-36.8)
[2020-07-15 11:50] LABS: Lactic Acid Reflex 1.8 mmol/L (0.7-2.1)
[2020-07-15] MEDS: HEPARIN SOD/D5W 100 UNITS/ML 25,000 UNITS/250 ML BAG 12 UNITS IV CONT (11:53)
[2020-07-15 12:13] LABS: Troponin I 0.135 ng/mL (0.000-0.034)
[2020-07-15 12:16] LABS: Glucose Point of Care 135 (65-105)
[2020-07-15] MEDS: PROPOFOL IV EMULSION 100 ML 17.62 MG IV CONT ×3 (12:55→23:55)
[2020-07-15 13:13] LABS: Glucose Point of Care 119 (65-105)
--- NOTE | 2020-07-15 14:00 | ECG_ITS ---
Measurements Intervals [place] Rate: 67 P: 35 CA: 150 QRS: 11 QRSD: 81 T: 57 QT: 470 QTc: 499 Interpretive Statements SINUS RHYTHM INCOMPLETE RIGHT BUNDLE BRANCH BLOCK LOW QRS VOLTAGE IN PRECORDIAL LEADS BORDERLINE R WAVE PROGRESSION, ANTERIOR LEADS BORDERLINE ECG Electronically Signed On 07-15-2020 15:09:42 TRANSPORTATION OPERATIONS MANAGER by Lion Lee D.O.
[2020-07-15 14:16] LABS: Glucose Point of Care 118 (65-105)
[2020-07-15] MEDS: CENTRAL LINE FLUSH 10 ML IV PUSH ×3 (14:26→23:54)
[2020-07-15 15:16] LABS: Glucose Point of Care 122 (65-105)
[2020-07-15 16:18] LABS: Glucose Point of Care 115 (65-105)
[2020-07-15 17:06] LABS: Glucose Point of Care 134 (65-105)
[2020-07-15 17:53] LABS: Partial Thromboplastin Time 179.5 SECONDS (22.3-36.8)
[2020-07-15 18:13] LABS: Glucose Point of Care 118 (65-105)
[2020-07-15 19:03] LABS: Glucose Point of Care 121 (65-105)
[2020-07-15 21:02] LABS: INR 1.8; Prothrombin Time 21.5 Seconds (11.1-14.7)
[2020-07-15 21:03] LABS: Phosphorus 3.7 mg/dL (2.5-4.5)
[2020-07-15 21:06] LABS: Anion Gap 8 mmol/L (8-16); Blood Urea Nitrogen 53 mg/dL (7-17); Calcium 7.7 mg/dL (8.4-10.2); Carbon Dioxide 23 mmol/L (22-30); Chloride 107 mmol/L (98-107); Estimated CRCL calculation 21 ml/min; Estimated Glomerular Filt Rate 22; Glucose 131 mg/dL (65-105); Magnesium 2.2 mg/dL (1.6-2.3); Potassium 3.7 mmol/L (3.4-5.0); Sodium 138 mmol/L (137-145)
[2020-07-15 22:41] LABS: Glucose Point of Care 116 (65-105)
[2020-07-16] VITALS (57 sets, daily range): BP systolic 68–184; BP diastolic 30–69; PULSE 55–117; RESP 22–37; TEMP 33.5–37.1; O2SAT 93–99
[2020-07-16 00:16] LABS: Partial Thromboplastin Time > 200.0 SECONDS (22.3-36.8)
[2020-07-16] MEDS: CISATRACURIUM BESYLATE 200 MG in DEXTROSE 5% 80 ML IV CONT (01:06)
[2020-07-16 01:15] LABS: Lactic Acid Reflex 0.9 mmol/L (0.7-2.1)
[2020-07-16 03:58] LABS: Hematocrit 22.7 % (37.0-47.0); Hemoglobin 7.7 g/dL (12.0-15.0); Mean Corpuscular HGB Conc 33.9 g/dl (32-36); Mean Corpuscular Hemoglobin 28.8 pg (26-34); Mean Platelet Volume 10.4 fl (7.4-10.4); Platelet Count Result 173 k/mm3 (150-375); Red Blood Count 2.67 M/mm3 (4.2-5.4); Red Cell Distribution Width 16.8 % (11.5-14.5); White Blood Count 12.5 K/mm3 (4.5-10.0)
[2020-07-16 04:12] LABS: Anion Gap 5 mmol/L (8-16); Blood Urea Nitrogen 54 mg/dL (7-17); Calcium 7.5 mg/dL (8.4-10.2); Carbon Dioxide 27 mmol/L (22-30); Chloride 107 mmol/L (98-107); Estimated CRCL calculation 21 ml/min; Estimated Glomerular Filt Rate 22; Glucose 127 mg/dL (65-105); Magnesium 2.2 mg/dL (1.6-2.3); Potassium 3.5 mmol/L (3.4-5.0); Sodium 139 mmol/L (137-145)
[2020-07-16 04:41] LABS: Alveolar/Arterial O2 Gradient 274.9 mmHg; Base Excess ABG 1.1 mEq/l (+/-2.0); Carboxyhemoglobin 0.2 % THb (0-2.0); Fractional Inspired Oxygen 50 %; HCO3 ABG 23.7 mEq/l (22.0-26.0); Methemoglobin ABG 0.7 %THb (0-1.5); Oxygen Content ABG 8.7 %vol (16.0-22.0); Oxygen Saturation ABG 96.3 % (95.0-100.0); Oxyhemoglobin 94.1 % THb (90.0-100.0); PCO2 ABG 28.3 mmHg (35.0-45.0); PO2 ABG 72.4 mmHg (80.0-100.0); PO2 FiO2 Ratio Arterial Blood 1.45 %; Total Hemoglobin 6.5 g/dL (12.0-18.0)
[2020-07-16 04:42] LABS: Device VENTILATOR; Site Drawn ARTLINE
[2020-07-16 04:43] LABS: Arterial Blood Gas PEEP 8 cmH2O; Arterial Blood Gas Tidal Volume 350 ml; Arterial Blood Gas Vent Mode CMV; Arterial Blood Gas Ventilator rate 26 /MIN
[2020-07-16] MEDS: CENTRAL LINE FLUSH 10 ML IV PUSH ×4 (04:47→21:50)
[2020-07-16] MEDS: PROPOFOL IV EMULSION 100 ML 17.62 MG IV CONT ×2 (04:48→11:00)
[2020-07-16 07:48] LABS: Partial Thromboplastin Time 119.6 SECONDS (22.3-36.8)
[2020-07-16 07:59] LABS: Glucose Point of Care 111 (65-105)
[2020-07-16 08:06] LABS: Phosphorus 3.9 mg/dL (2.5-4.5)
[2020-07-16] MEDS: CALCIUM GLUC 1,000 MG/NS 50 ML 1,000 MG/50 ML BAG 100 MG IVPB (08:29)
[2020-07-16] MEDS: PANTOPRAZOLE SODIUM IV 40 MG VIAL IV PUSH (08:31)
[2020-07-16] MEDS: ASPIRIN 325 MG TABLET PO (08:31)
--- NOTE | 2020-07-16 08:35 | WPDINTPN ---
Progress Note: A&P Assessment and Plan (1) Acute respiratory failure: Code(s): J96.00 - Acute respiratory failure, unspecified whether with hypoxia or hypercapnia Status: Acute Assessment and Plan: Acute Respiratory failure secondary to cardiac arrest, pulmonary edema, questionable pneumonia Continue full mechanical ventilation support to prevent hypoxemia/hypercarbia and end organ damage. ABG and PCXR reviewed Continue PEEP to 8. FiO2 is down at 60% Or will give Lasix today Respiratory rate decreased to 22 (2) Pulmonary edema: Qualifiers: Chronicity: acute Qualified Code(s): J81.0 - Acute pulmonary edema Code(s): J81.1 - Chronic pulmonary edema Status: Acute Assessment and Plan: Lasix IV today (3) Sepsis: Code(s): A41.9 - Sepsis, unspecified organism Status: Acute Assessment and Plan: Possible pneumonia Currently on vanc and Zosyn Cultures Lactic acid has normalized (4) Pneumonia: Code(s): J18.9 - Pneumonia, unspecified organism Status: Acute Assessment and Plan: See above (5) Cardiac arrest: Code(s): I46.9 - Cardiac arrest, cause unspecified Status: Acute Assessment and Plan: Secondary to pulmonary edema and hypoxia EKG reviewed Serial troponin (6) Acute on chronic diastolic (congestive) heart failure: Code(s): I50.33 - Acute on chronic diastolic (congestive) heart failure Status: Acute Assessment and Plan: Patient was given Lasix in ED but she is currently on Levophed Lasix today (7) CKD (chronic kidney disease): Qualifiers: Chronic kidney disease stage: stage 3 (moderate) Chronic kidney disease stage 3 subtype: stage 3b (GFR 30-44) Qualified Code(s): N18.32 - Chronic kidney disease, stage 3b Code(s): N18.9 - Chronic kidney disease, unspecified Status: Acute Assessment and Plan: Creatinine appears to be close to baseline Monitor urine output creatinine and electrolytes Wray for accurate intake and output monitoring (8) Type 2 diabetes mellitus with stage 1 chronic kidney disease: Code(s): E11.22 - Type 2 diabetes mellitus with diabetic chronic kidney disease; N18.1 - Chronic kidney disease, stage 1 Status: Acute Assessment and Plan: Sliding scale insulin (9) Shock: Code(s): R57.9 - Shock, unspecified Status: Acute Assessment and Plan: Septic versus cardiogenic versus combination Continue Levophed for blood pressure support (10) Anoxic brain injury: Code(s): G93.1 - Anoxic brain damage, not elsewhere classified Status: Acute Assessment and Plan: Patient was posturing condition to ICU Currently sedated and paralyzed and on TTM Will start rewarming today around 9:[address] was unremarkable on presentation (11) DVT (deep venous thrombosis): Qualifiers: DVT location: lower extremity Affected thrombotic vein of extremity: popliteal Chronicity: unspecified Laterality: unspecified laterality Qualified Code(s): I82.439 - Acute embolism and thrombosis of unspecified popliteal vein Code(s): I82.409 - Acute embolism and thrombosis of unspecified deep veins of unspecified lower extremity Status: Acute Assessment and Plan: Patient has history of DVT which was diagnosed in 07/2019. She is on chronic anticoagulation with Xarelto Continue heparin infusion at this time Additional Plan DVT prophylaxis -heparin drip Stress ulcer prophylaxis -PPI Nutrition -NPO Code Status - Full Code . Patient's boyfriend is her legal POA and is going to bring paperwork today Total Critical Care Time - 32 minutes Due to a high probability of clinically significant, life threatening deterioration, the patient required my highest level of preparedness to intervene emergently and I personally spent this critical care time directly and personally managing the patient. This critical
[2020-07-16 09:19] LABS: Glucose Point of Care 107 (65-105)
[2020-07-16] MEDS: FUROSEMIDE INJ 100 MG/10 ML VIAL 80 MG IV PUSH (10:12)
[2020-07-16 10:40] LABS: Glucose Point of Care 119 (65-105)
--- NOTE | 2020-07-16 11:00 | PCDIET ---
Nutrition Follow-Up Complete: Nutrition Diagnosis: Inadequate oral intake related to oral intubation as evidenced by NPO status. Nutrition Goal: Patient to meet estimated nutritional needs. Goal not met. Patient remains NPO due to rewarming. Recommend enteral nutrition when rewarmed and stable. Last recorded weight is 100 kg which is increased from last review. Bowel Motility: No documented BM yet. RN reports 500mL output from OG overnight. Labs Reviewed: Hgb (7.7), Hct (22.7), Glu (127), BUN (54), Cr (2.2), Ca (7.5) Meds Noted: Nimbex, Levophed, Protonix, Zosyn, Vancomycin, Calcium Gluconate, Lasix, Propofol (rate of 17.622mL/hr provides 465kcal per day) Additional Notes: No documented skin breakdown. Will continue to monitor with same goal. Nutrition Monitoring and Evaluation: Follow up every 3 days.
[2020-07-16 11:40] LABS: Lactic Acid Reflex 0.9 mmol/L (0.7-2.1)
[2020-07-16 12:23] LABS: Glucose Point of Care 112 (65-105)
[2020-07-16] MEDS: HEPARIN SOD/D5W 100 UNITS/ML 25,000 UNITS/250 ML BAG 7 UNITS IV CONT (13:36)
[2020-07-16 14:21] LABS: Glucose Point of Care 118 (65-105)
[2020-07-16 14:33] LABS: Glucose Point of Care 124 (65-105)
[2020-07-16 15:07] LABS: Partial Thromboplastin Time 59.8 SECONDS (22.3-36.8)
[2020-07-16] MEDS: PROPOFOL IV EMULSION 100 ML 20.56 MG IV CONT (15:33)
[2020-07-16] MEDS: HEPARIN SODIUM 5,000 UNITS/ML VIAL 2500 UNITS IV PUSH ×2 (15:33→22:19)
[2020-07-16] MEDS: LABETALOL HCL INJ 100 MG/20 ML VIAL 20 MG IV PUSH (16:44)
[2020-07-16] MEDS: PROPOFOL IV EMULSION 100 ML 12 MG IV CONT (17:12)
[2020-07-16] MEDS: PROPOFOL IV EMULSION 100 ML 24 MG IV CONT (21:38)
[2020-07-16] MEDS: METOPROLOL TARTRATE 25 MG TABLET FEED TUBE (21:56)
[2020-07-16 21:58] LABS: Partial Thromboplastin Time 60.2 SECONDS (22.3-36.8)
[2020-07-17] VITALS (33 sets, daily range): BP systolic 80–150; BP diastolic 33–67; PULSE 74–98; RESP 22–32; TEMP 36.6–37.1; O2SAT 94–98
[2020-07-17 00:12] LABS: Glucose Point of Care 128 (65-105)
[2020-07-17] MEDS: PROPOFOL IV EMULSION 100 ML 24 MG IV CONT ×5 (01:37→21:35)
--- NOTE | 2020-07-17 03:15 | ECG_ITS ---
Measurements Intervals [place] Rate: 81 P: 36 [place]: 158 QRS: -17 QRSD: 78 T: 48 QT: 407 QTc: 475 Interpretive Statements SINUS RHYTHM ATRIAL PREMATURE COMPLEX INCOMPLETE RIGHT BUNDLE BRANCH BLOCK DELAYED PRECORDIAL R/S TRANSITION LOW QRS VOLTAGE- DIFFUSE LEADS BASELINE ARTIFACT- I, II, AVR, V1, V3-V4, V6 BORDERLINE ECG Electronically Signed On 07-17-2020 8:19:24 [facility] RN by Lion Lee D.O.
[2020-07-17] MEDS: CENTRAL LINE FLUSH 10 ML IV PUSH ×4 (03:39→20:05)
[2020-07-17 04:30] LABS: Hematocrit 22.6 % (37.0-47.0); Hemoglobin 7.5 g/dL (12.0-15.0); Mean Corpuscular HGB Conc 33.2 g/dl (32-36); Mean Corpuscular Hemoglobin 28.5 pg (26-34); Mean Corpuscular Volume 85.9 fl (80-100); Mean Platelet Volume 10.9 fl (7.4-10.4); Platelet Count Result 277 k/mm3 (150-375); Red Blood Count 2.63 M/mm3 (4.2-5.4); Red Cell Distribution Width 17.3 % (11.5-14.5)
[2020-07-17 04:43] LABS: Partial Thromboplastin Time 112.5 SECONDS (22.3-36.8)
[2020-07-17 04:50] LABS: Anion Gap 10 mmol/L (8-16); Blood Urea Nitrogen 57 mg/dL (7-17); Calcium 7.9 mg/dL (8.4-10.2); Carbon Dioxide 24 mmol/L (22-30); Chloride 102 mmol/L (98-107); Estimated CRCL calculation 19 ml/min; Estimated Glomerular Filt Rate 18; Glucose 138 mg/dL (65-105); Magnesium 2.1 mg/dL (1.6-2.3); Potassium 4.1 mmol/L (3.4-5.0); Sodium 136 mmol/L (137-145)
[2020-07-17 04:52] LABS: Lactic Acid Reflex 1.7 mmol/L (0.7-2.1)
[2020-07-17] MEDS: NOREPINEPHRINE 8 MG/D5W 250 ML 8 MG/250 ML BAG 7.5 MG IV CONT (04:57)
[2020-07-17 05:16] LABS: Alveolar/Arterial O2 Gradient 186.5 mmHg; Base Excess ABG -1.2 mEq/l (+/-2.0); Carboxyhemoglobin 0.3 % THb (0-2.0); Fractional Inspired Oxygen 40 %; HCO3 ABG 21.8 mEq/l (22.0-26.0); Methemoglobin ABG 0.4 %THb (0-1.5); Oxygen Content ABG 10.3 %vol (16.0-22.0); Oxygen Saturation ABG 94.4 % (95.0-100.0); Oxyhemoglobin 91.2 % THb (90.0-100.0); PCO2 ABG 29.6 mmHg (35.0-45.0); PO2 ABG 64.7 mmHg (80.0-100.0); PO2 FiO2 Ratio Arterial Blood 1.62 %; Reduced Hemoglobin 8.1 %THb (0-5.0); pH ABG 7.486 (7.350-7.450)
[2020-07-17 05:18] LABS: Device VENTILATOR; Site Drawn ARTLINE
[2020-07-17 05:19] LABS: Arterial Blood Gas PEEP 8 cmH2O; Arterial Blood Gas Tidal Volume 350 ml; Arterial Blood Gas Vent Mode ASSIST CONTROL; Arterial Blood Gas Ventilator rate 22 /MIN
[2020-07-17] MEDS: ASPIRIN 325 MG TABLET PO (08:10)
[2020-07-17] MEDS: PANTOPRAZOLE SODIUM IV 40 MG VIAL IV PUSH (08:10)
[2020-07-17] MEDS: FUROSEMIDE INJ 100 MG/10 ML VIAL 80 MG IV PUSH ×2 (08:22→17:15)
[2020-07-17] MEDS: PROPOFOL IV EMULSION 100 ML 21 MG IV CONT (09:11)
--- NOTE | 2020-07-17 11:07 | WPDINTPN ---
Progress Note: A&P Assessment and Plan (1) Acute respiratory failure: Code(s): J96.00 - Acute respiratory failure, unspecified whether with hypoxia or hypercapnia Status: Acute Assessment and Plan: Acute Respiratory failure secondary to cardiac arrest, pulmonary edema, I doubt pneumonia is present and I will discontinue antibiotics. Continue full mechanical ventilation support to prevent hypoxemia/hypercarbia and end organ damage. ABG and PCXR reviewed Continue PEEP to 8. FiO2 is down at 40% Or will give Lasix today Respiratory rate decreased to 22 (2) Pulmonary edema: Qualifiers: Chronicity: acute Qualified Code(s): J81.0 - Acute pulmonary edema Code(s): J81.1 - Chronic pulmonary edema Status: Acute Assessment and Plan: Lasix IV today (3) Pneumonia: Code(s): J18.9 - Pneumonia, unspecified organism Status: Acute Assessment and Plan: I see no signs of significant pneumonia and her clinical picture is more consistent with congestive heart failure. Will discontinue antibiotics and increase diuretic doses. (4) Cardiac arrest: Code(s): I46.9 - Cardiac arrest, cause unspecified Status: Acute Assessment and Plan: Secondary to pulmonary edema and hypoxia EKG reviewed Serial troponin (5) Acute on chronic diastolic (congestive) heart failure: Code(s): I50.33 - Acute on chronic diastolic (congestive) heart failure Status: Acute Assessment and Plan: Patient was given Lasix in ED but she is currently on Levophed Lasix today (6) CKD (chronic kidney disease): Qualifiers: Chronic kidney disease stage: stage 3 (moderate) Chronic kidney disease stage 3 subtype: stage 3b (GFR 30-44) Qualified Code(s): N18.32 - Chronic kidney disease, stage 3b Code(s): N18.9 - Chronic kidney disease, unspecified Status: Acute Assessment and Plan: Creatinine appears to be close to baseline Monitor urine output creatinine and electrolytes Wray for accurate intake and output monitoring (7) Type 2 diabetes mellitus with stage 1 chronic kidney disease: Code(s): E11.22 - Type 2 diabetes mellitus with diabetic chronic kidney disease; N18.1 - Chronic kidney disease, stage 1 Status: Acute Assessment and Plan: Sliding scale insulin (8) Shock: Code(s): R57.9 - Shock, unspecified Status: Acute Assessment and Plan: Septic versus cardiogenic versus combination Continue Levophed for blood pressure support (9) Anoxic brain injury: Code(s): G93.1 - Anoxic brain damage, not elsewhere classified Status: Acute Assessment and Plan: The patient was fully warmed last night and off of propofol she became very agitated and tachypneic into the 40s and hence propofol sedation was re-started. Will continue propofol for now and try to hold it tomorrow morning for a neurologic evaluation. Overall prognosis is very poor neurologic function does not improve. Head CT was unremarkable on presentation (10) DVT (deep venous thrombosis): Qualifiers: DVT location: lower extremity Affected thrombotic vein of extremity: popliteal Chronicity: unspecified Laterality: unspecified laterality Qualified Code(s): I82.439 - Acute embolism and thrombosis of unspecified popliteal vein Code(s): I82.409 - Acute embolism and thrombosis of unspecified deep veins of unspecified lower extremity Status: Acute Assessment and Plan: Patient has history of DVT which was diagnosed in 07/2019. She is on chronic anticoagulation with Xarelto Continue heparin infusion at this time (11) CHF (congestive heart failure): Code(s): I50.9 - Heart failure, unspecified Status: Acute Assessment and Plan: Will start Lasix 80 mg IV b.i.d. and monitor her creatinine. Additional Plan DVT prophylaxis -heparin drip Stress ulcer prophylaxis -PPI Nutrition -NPO Code Status - Fu
[2020-07-17 11:12] LABS: Partial Thromboplastin Time 62.2 SECONDS (22.3-36.8)
[2020-07-17] MEDS: HEPARIN SODIUM 5,000 UNITS/ML VIAL 2500 UNITS IV PUSH (11:26)
[2020-07-17 11:34] LABS: Glucose Point of Care 137 (65-105)
--- NOTE | 2020-07-17 13:09 | PM.IMPN ---
Progress Note: A&P Assessment and Plan (1) Sepsis: Code(s): A41.9 - Sepsis, unspecified organism Status: Acute Assessment and Plan: On vanc and zosyn (2) Acute respiratory failure: Code(s): J96.00 - Acute respiratory failure, unspecified whether with hypoxia or hypercapnia Status: Acute Assessment and Plan: Pt is on a ventilator (3) Hypotension: Qualifiers: Hypotension type: other hypotension type Qualified Code(s): I95.89 - Other hypotension Code(s): I95.9 - Hypotension, unspecified Status: Acute Assessment and Plan: On levophed (4) Cardiac arrest: Code(s): I46.9 - Cardiac arrest, cause unspecified Status: Acute (5) Pulmonary edema: Qualifiers: Chronicity: acute Qualified Code(s): J81.0 - Acute pulmonary edema Code(s): J81.1 - Chronic pulmonary edema Status: Acute Assessment and Plan: Pt is on iv lasix (6) Diabetes: Qualifiers: Diabetes mellitus type: type 2 Diabetes 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 insulin use: without termite 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 helper use Diabetes mellitus complication status: with hyperglycemia Qualified Code(s): E11.65 - Type 2 diabetes mellitus with hyperglycemia Code(s): E11.9 - Type 2 diabetes mellitus without complications Status: Acute (7) Acute on chronic diastolic (congestive) heart failure: Code(s): I50.33 - Acute on chronic diastolic (congestive) heart failure Status: Acute Assessment and Plan: Pt is on iv lasix Subjective Date/time seen: 07/17/20 13:09 Interval history: 74 year old female chronic kidney disease, diabetes mellitus, morbid obesity with obstructive sleep apnea on chronic home oxygen and diastolic dysfunction grade 2 (echo April 2020) and recent hospitalization for similar symptoms who presented to the ER with respiratory distress. Treated for CHF excerbation and Community Acquired pneumonia. Pt presented to ED with cardiac arrest. Pt is intubated in ICU Review of Systems Review of Systems: All systems reviewed & are unremarkable except as noted in HPI and below Exam Const: General: other (On a ventilator ) Resp: Effort & Inspection: no respiratory distress Cardio: Rate: regular rate Rhythm: regular rhythm GI: Inspection: normal to inspection GI Palp: No abdominal tenderness, No Guarding due to palpation present (GI) and No Hepatomegaly present Auscultation: normal bowel sounds Neuro: General: other (Pt sedated ) Objective Data Vital Signs Vital Signs: Vital Signs - 24 hr 07/16/20 14:00 07/16/20 15:00 07/16/20 15:21 Temperature 36.2 C L Pulse Rate 93 111 H 110 H Respiratory Rate 22 H 22 H Blood Pressure 95/41 L 136/53 L Pulse Oximetry 96 97 97 07/16/20 15:33 07/16/20 15:41 07/16/20 16:00 Temperature 36.2 C L Pulse Rate 113 H 113 H 101 H Respiratory Rate 27 H 33 H 28 H Blood Pressure 113/47 L Pulse Oximetry 99 07/16/20 16:44 07/16/20 16:54 07/16/20 16:59 Temperature Pulse Rate 90 71 69 Respiratory Rate 37 H Blood Pressure 85/35 L Pulse Oximetry 07/16/20 17:00 07/16/20 17:03 07/16/20 17:04 Temperature 36.2 C L Pulse Rate 70 67 66 Respiratory Rate 27 H Blood Pressure 94/39 L 68/30 L Pulse Oximetry 99 99 07/16/20 17:12 07/16/20 18:00 07/16/20 18:55 Temperature 36.5 C Pulse Rate 76 71 76 Respiratory Rate 28 H 24 H Blood Pressure 115/46 L 98/40 L Pulse Oximetry 99 07/16/20 19:25 07/16/20 19:39 07/16/20 20:00 Temperature 37.1 C Pulse Rate 76 76 75 Respiratory Rate 30 H 34 H 30 H Blood Pressure 118/47 L Pulse Oximetry 98 07/16/20 20:08 07/16/20 20:13 07/16/20 21:38 Temperature Pulse Rate 92 87 93 Respiratory Rate 32 H 29 H Blood Pressure 140/55 L 121/46 L Pulse Oximetry 98 07/16/20 21:56 07/16/20 21:58 07/16/20 22:00 Temperature Pulse Rate 84 85 81 Respiratory Rate 26 H Blood Pressure 123/47 L 107/40 L Pulse Oximetry
[2020-07-17] MEDS: HEPARIN SOD/D5W 100 UNITS/ML 25,000 UNITS/250 ML BAG 9 UNITS IV CONT (17:16)
[2020-07-17 17:38] LABS: Glucose Point of Care 128 (65-105)
[2020-07-17 18:02] LABS: Partial Thromboplastin Time 89.8 SECONDS (22.3-36.8)
[2020-07-18] VITALS (33 sets, daily range): BP systolic 82–145; BP diastolic 33–50; PULSE 80–128; RESP 22–36; TEMP 37.1–37.3; O2SAT 93–100
[2020-07-18 00:05] LABS: Glucose Point of Care 144 (65-105)
[2020-07-18 00:33] LABS: Partial Thromboplastin Time 55.2 SECONDS (22.3-36.8)
[2020-07-18] MEDS: HEPARIN SODIUM 5,000 UNITS/ML VIAL 2500 UNITS IV PUSH (00:54)
[2020-07-18 01:07] LABS: Vancomycin Trough 21.2 ug/mL (10.0-20.0)
[2020-07-18] MEDS: PROPOFOL IV EMULSION 100 ML 24 MG IV CONT ×2 (02:01→05:33)
[2020-07-18 05:00] LABS: Alveolar/Arterial O2 Gradient 152.2 mmHg; Carboxyhemoglobin 0.3 % THb (0-2.0); Fractional Inspired Oxygen 40 %; HCO3 ABG 24.2 mEq/l (22.0-26.0); Methemoglobin ABG 0.8 %THb (0-1.5); Oxygen Content ABG 10.6 %vol (16.0-22.0); Oxygen Saturation ABG 97.1 % (95.0-100.0); Oxyhemoglobin 94.8 % THb (90.0-100.0); PCO2 ABG 37.3 mmHg (35.0-45.0); PO2 ABG 90.1 mmHg (80.0-100.0); PO2 FiO2 Ratio Arterial Blood 2.25 %; Reduced Hemoglobin 4.1 %THb (0-5.0); Total Hemoglobin 7.8 g/dL (12.0-18.0)
[2020-07-18 05:01] LABS: Arterial Blood Gas PEEP 8 cmH2O; Arterial Blood Gas Tidal Volume 350 ml; Arterial Blood Gas Vent Mode CMV; Arterial Blood Gas Ventilator rate 22 /MIN; Device VENTILATOR; Site Drawn ARTLINE
[2020-07-18] MEDS: CENTRAL LINE FLUSH 10 ML IV PUSH ×4 (05:35→20:14)
[2020-07-18] MEDS: NOREPINEPHRINE 8 MG/D5W 250 ML 8 MG/250 ML BAG 16.88 MG IV CONT (06:32)
[2020-07-18 06:46] LABS: Hemoglobin 7.1 g/dL (12.0-15.0); Mean Corpuscular HGB Conc 32.3 g/dl (32-36); Mean Corpuscular Hemoglobin 28.4 pg (26-34); Platelet Count Result 305 k/mm3 (150-375); Red Cell Distribution Width 17.7 % (11.5-14.5); White Blood Count 25.7 K/mm3 (4.5-10.0)
[2020-07-18 07:10] LABS: Eosinophils Absolute Manual 0.77 K/mm3 (0.02-0.5); Eosinophils Percent Manual 3 % (0-4); Lymphocytes Absolute Manual 4.88 K/mm3 (1.1-4.5); Monocytes Absolute Manual 1.02 K/mm3 (0.1-0.90); Monocytes Percent Manual 4 % (3-9); Neutrophils Percent Manual 74 % (46-73); Platelet Estimate Adequate (Adequate); Total Cells Counted 100
[2020-07-18 07:11] LABS: Anion Gap 8 mmol/L (8-16); Blood Urea Nitrogen 56 mg/dL (7-17); Calcium 8.3 mg/dL (8.4-10.2); Carbon Dioxide 26 mmol/L (22-30); Chloride 102 mmol/L (98-107); Estimated CRCL calculation 18 ml/min; Estimated Glomerular Filt Rate 18; Glucose 133 mg/dL (65-105); Magnesium 2.1 mg/dL (1.6-2.3); Ovalocytes 1+ (NORMAL); Partial Thromboplastin Time 85.9 SECONDS (22.3-36.8); Potassium 3.5 mmol/L (3.4-5.0); Sodium 136 mmol/L (137-145)
[2020-07-18] MEDS: ASPIRIN 325 MG TABLET PO (07:42)
[2020-07-18] MEDS: FUROSEMIDE INJ 100 MG/10 ML VIAL 80 MG IV PUSH ×2 (07:42→16:01)
[2020-07-18] MEDS: PANTOPRAZOLE SODIUM IV 40 MG VIAL IV PUSH (07:42)
--- NOTE | 2020-07-18 08:52 | PM.IMPN ---
Progress Note: A&P Assessment and Plan (1) Sepsis: Qualifiers: Sepsis type: sepsis due to unspecified organism Sepsis acute organ dysfunction status: with acute organ dysfunction Severe sepsis acute organ dysfunction type: encephalopathy Severe sepsis shock status: with septic shock Qualified Code(s): A41.9 - Sepsis, unspecified organism; R65.21 - Severe sepsis with septic shock; G93.40 - Encephalopathy, unspecified Code(s): A41.9 - Sepsis, unspecified organism Status: Acute Assessment and Plan: Continue Vanc, aztreonam for possible pulmonary etiology Norepinephrine Decision re: comfort care pending from POA (2) Acute respiratory failure: Qualifiers: Respiratory failure complication: hypoxia Qualified Code(s): J96.01 - Acute respiratory failure with hypoxia Code(s): J96.00 - Acute respiratory failure, unspecified whether with hypoxia or hypercapnia Status: Acute Assessment and Plan: Continue to support unless family chooses to convert to comfort care (3) Cardiac arrest: Code(s): I46.9 - Cardiac arrest, cause unspecified Status: Acute Assessment and Plan: Assytolic Likely due to sepsis, respiratory failure (4) Pulmonary edema: Qualifiers: Chronicity: acute Qualified Code(s): J81.0 - Acute pulmonary edema Code(s): J81.1 - Chronic pulmonary edema Status: Acute Assessment and Plan: Continue diuresis (5) Diabetes: Qualifiers: Diabetes mellitus type: type 2 Diabetes mellitus usp insulin use: without usp use Diabetes mellitus complication status: with hyperglycemia Qualified Code(s): E11.65 - Type 2 diabetes mellitus with hyperglycemia Code(s): E11.9 - Type 2 diabetes mellitus without complications Status: Acute Assessment and Plan: SSI (6) Acute on chronic diastolic (congestive) heart failure: Code(s): I50.33 - Acute on chronic diastolic (congestive) heart failure Status: Acute Assessment and Plan: Continue diuresis (7) Anoxic brain injury: Code(s): G93.1 - Anoxic brain damage, not elsewhere classified Status: Acute Assessment and Plan: POA is contemplating comfort care Subjective Date/time seen: 07/18/20 08:52 Interval history: 74 year old female chronic kidney disease, diabetes mellitus, morbid obesity with obstructive sleep apnea on chronic home oxygen and diastolic dysfunction grade 2 (echo April 2020) and recent hospitalization for similar symptoms. Admitted 07/15 with progressive dyspnea followed by cardiac arrest. Initial rhythm was asystole. In ICU on ventilator since admission. Did not awaken when sedation was weaned. Did become restless, so propofol was resumed. 07/18: Sedated on ventilator. Review of Systems Review of Systems: ROS unobtainable: Yes unobtainable due to medical condition Exam Narrative: Exam Narrative: HEENT: EOMI, PERRL, sclerae nonicteric, pharyngeal mucosa pink and intact NECK: No JVD CHEST: Coarse BS HEART: NL S1/S2, regular, no murmur ABDOMEN: BS+, soft, nontender, no mass, no bruits EXTREMITIES: No cyanosis, trace edema NEUROLOGIC: CN intact w/o gross asymmetry. Negative corneal reflex. Doll's eyes. MUSCULOSKELETAL: Tone and strength symmetric. PSYCH: Unresponsive to tactile and vocal stimuli Objective Data Vital Signs Vital Signs: Vital Signs - 24 hr 07/17/20 09:11 07/17/20 10:00 07/17/20 11:33 Temperature Pulse Rate 82 82 Respiratory Rate 26 H 22 H Blood Pressure 110/43 L Pulse Oximetry 96 94 07/17/20 11:41 07/17/20 11:45 07/17/20 12:00 Temperature 98.5 F Pulse Rate 85 86 87 Respiratory Rate 28 H Blood Pressure 145/50 H Pulse Oximetry 94 95 07/17/20 13:57 07/17/20 14:00 07/17/20 14:23 Temperature 97.9 F Pulse Rate 81 94 85 Respiratory Rate 24 H Blood Pressure 101/67 Pulse Oximetry 96 95 07/17/20 16:00 07/17/20 17:05 07/17/20
[2020-07-18] MEDS: AZTREONAM 1 GM in DEXTROSE 5% IN WATER 50 ML 100 ML IVPB ×3 (09:15→22:15)
--- NOTE | 2020-07-18 09:54 | PC.NURSE ---
Propofol turned off for approximately [address] Hassan order. Patient did not wake up nor display any purposeful movement to any stimulation. Dr. Hassan was at bedside to assess and ordered propofol to resume as patient became tachycardic and tachypneic without sedation.
[2020-07-18] MEDS: PROPOFOL IV EMULSION 100 ML 18 MG IV CONT ×3 (10:36→20:05)
[2020-07-18 11:31] LABS: Glucose Point of Care 147 (65-105)
--- NOTE | 2020-07-18 11:49 | P.PNINT_ITS ---
Progress Note: A&P Assessment and Plan (1) Acute respiratory failure: Code(s): J96.00 - Acute respiratory failure, unspecified whether with hypoxia or hypercapnia Status: Acute Assessment and Plan: Acute Respiratory failure secondary to cardiac arrest, pulmonary edema, I doubt pneumonia is present and I will discontinue antibiotics. Continue full mechanical ventilation support to prevent hypoxemia/hypercarbia and end organ damage. ABG and PCXR reviewed Continue PEEP to 8. FiO2 is down at 40% Or will give Lasix today Respiratory rate decreased to 22 (2) Pulmonary edema: Qualifiers: Chronicity: acute Qualified Code(s): J81.0 - Acute pulmonary edema Code(s): J81.1 - Chronic pulmonary edema Status: Acute Assessment and Plan: Lasix IV today (3) Pneumonia: Code(s): J18.9 - Pneumonia, unspecified organism Status: Acute Assessment and Plan: I see no signs of significant pneumonia and her clinical picture is more consistent with congestive heart failure. Will discontinue antibiotics and increase diuretic doses. (4) Cardiac arrest: Code(s): I46.9 - Cardiac arrest, cause unspecified Status: Acute Assessment and Plan: Secondary to pulmonary edema and hypoxia EKG reviewed Serial troponin (5) Acute on chronic diastolic (congestive) heart failure: Code(s): I50.33 - Acute on chronic diastolic (congestive) heart failure Status: Acute Assessment and Plan: Patient was given Lasix in ED but she is currently on Levophed Lasix today (6) CKD (chronic kidney disease): Qualifiers: Chronic kidney disease stage: stage 3 (moderate) Chronic kidney disease stage 3 subtype: stage 3b (GFR 30-44) Qualified Code(s): N18.32 - Chronic kidney disease, stage 3b Code(s): N18.9 - Chronic kidney disease, unspecified Status: Acute Assessment and Plan: Creatinine appears to be close to baseline Monitor urine output creatinine and electrolytes Wray for accurate intake and output monitoring (7) Type 2 diabetes mellitus with stage 1 chronic kidney disease: Code(s): E11.22 - Type 2 diabetes mellitus with diabetic chronic kidney disease; N18.1 - Chronic kidney disease, stage 1 Status: Acute Assessment and Plan: Sliding scale insulin (8) Shock: Code(s): R57.9 - Shock, unspecified Status: Resolved Assessment and Plan: Septic versus cardiogenic versus combination Continue Levophed for blood pressure support (9) Anoxic brain injury: Code(s): G93.1 - Anoxic brain damage, not elsewhere classified Status: Acute Assessment and Plan: The patient was fully warmed last night and off of propofol she became very agitated and tachypneic into the 40s and hence propofol sedation was re-started. Will continue propofol for now and try to hold it tomorrow morning for a neurologic evaluation. Overall prognosis is very poor neurologic function does not improve. Head CT was unremarkable on presentation (10) DVT (deep venous thrombosis): Qualifiers: DVT location: lower extremity Affected thrombotic vein of extremity: popliteal Chronicity: unspecified Laterality: unspecified laterality Qualified Code(s): I82.439 - Acute embolism and thrombosis of unspecified popliteal vein Code(s): I82.409 - Acute embolism and thrombosis of unspecified deep veins of unspecified lower extremity Status: Acute Assessment and Plan: Patient has history of DVT which was diagnosed in 07/2019. She is on ch
[2020-07-18 12:57] LABS: Partial Thromboplastin Time 74.4 SECONDS (22.3-36.8)
[2020-07-18] MEDS: POTASSIUM CHLORIDE 20 MEQ PACKET (FOR LIQUID) 40 MEQ FEED TUBE (16:01)
[2020-07-18] MEDS: NOREPINEPHRINE 8 MG/D5W 250 ML 8 MG/250 ML BAG 26.25 MG IV CONT (17:05)
[2020-07-18] MEDS: HEPARIN SOD/D5W 100 UNITS/ML 25,000 UNITS/250 ML BAG 10 UNITS IV CONT (18:44)
[2020-07-18 18:47] LABS: Glucose Point of Care 127 (65-105)
[2020-07-18] MEDS: PROPOFOL IV EMULSION 100 ML 21 MG IV CONT (23:38)
[2020-07-18 23:41] LABS: Glucose Point of Care 144 (65-105)
[2020-07-19] VITALS (16 sets, daily range): BP systolic 103–142; BP diastolic 35–44; PULSE 75–87; RESP 22–25; TEMP 36.9–37.3; O2SAT 95–98
[2020-07-19] MEDS: NOREPINEPHRINE 8 MG/D5W 250 ML 8 MG/250 ML BAG 24.38 MG IV CONT (03:32)
[2020-07-19] MEDS: PROPOFOL IV EMULSION 100 ML 21 MG IV CONT (03:58)
[2020-07-19 04:06] LABS: Hematocrit 22.6 % (37.0-47.0); Hemoglobin 7.5 g/dL (12.0-15.0); Mean Corpuscular HGB Conc 33.2 g/dl (32-36); Mean Corpuscular Hemoglobin 28.7 pg (26-34); Mean Corpuscular Volume 86.6 fl (80-100); Mean Platelet Volume 10.1 fl (7.4-10.4); Platelet Count Result 368 k/mm3 (150-375); Red Blood Count 2.61 M/mm3 (4.2-5.4); White Blood Count 21.5 K/mm3 (4.5-10.0)
[2020-07-19 04:09] LABS: Anion Gap 9 mmol/L (8-16); Blood Urea Nitrogen 54 mg/dL (7-17); Calcium 8.3 mg/dL (8.4-10.2); Carbon Dioxide 26 mmol/L (22-30); Chloride 102 mmol/L (98-107); Estimated CRCL calculation 18 ml/min; Estimated Glomerular Filt Rate 18; Glucose 140 mg/dL (65-105); Potassium 3.8 mmol/L (3.4-5.0); Sodium 137 mmol/L (137-145)
[2020-07-19 05:05] LABS: Alveolar/Arterial O2 Gradient 156.4 mmHg; Base Excess ABG -1.2 mEq/l (+/-2.0); Carboxyhemoglobin 0.3 % THb (0-2.0); Fractional Inspired Oxygen 40 %; Methemoglobin ABG 0.6 %THb (0-1.5); Oxygen Content ABG 11.3 %vol (16.0-22.0); Oxygen Saturation ABG 97.7 % (95.0-100.0); Oxyhemoglobin 95.4 % THb (90.0-100.0); PCO2 ABG 30.7 mmHg (35.0-45.0); PO2 ABG 93.5 mmHg (80.0-100.0); PO2 FiO2 Ratio Arterial Blood 2.34 %; Reduced Hemoglobin 3.7 %THb (0-5.0); Total Hemoglobin 8.3 g/dL (12.0-18.0); pH ABG 7.473 (7.350-7.450)
[2020-07-19 05:08] LABS: Device VENTILATOR; Site Drawn ARTLINE
[2020-07-19 05:09] LABS: Arterial Blood Gas PEEP 8 cmH2O; Arterial Blood Gas Tidal Volume 350 ml; Arterial Blood Gas Vent Mode CMV; Arterial Blood Gas Ventilator rate 22 /MIN
[2020-07-19] MEDS: AZTREONAM 1 GM in DEXTROSE 5% IN WATER 50 ML 100 ML IVPB (05:41)
[2020-07-19 05:50] LABS: Partial Thromboplastin Time 73.3 SECONDS (22.3-36.8)
[2020-07-19] MEDS: CENTRAL LINE FLUSH 10 ML IV PUSH (06:24)
[2020-07-19] MEDS: FUROSEMIDE INJ 100 MG/10 ML VIAL 80 MG IV PUSH (08:03)
[2020-07-19] MEDS: ASPIRIN 325 MG TABLET PO (08:04)
[2020-07-19] MEDS: PANTOPRAZOLE SODIUM IV 40 MG VIAL IV PUSH (08:04)
[2020-07-19] MEDS: PROPOFOL IV EMULSION 100 ML 18 MG IV CONT (08:08)
[2020-07-19] MEDS: POTASSIUM CHLORIDE 20 MEQ PACKET (FOR LIQUID) 40 MEQ FEED TUBE (08:08)
[2020-07-19] MEDS: MORPHINE SULFATE INJ (*CRX) 10 MG/ML AMP 5 MG IV PUSH (11:45)
[2020-07-19] MEDS: LORazepam INJ (*CRX) 2 MG/ML VIAL IV PUSH ×2 (11:45→13:07)
--- NOTE | 2020-07-19 12:24 | WPDINTPN ---
Progress Note: A&P Assessment and Plan (1) Acute respiratory failure: Qualifiers: Respiratory failure complication: hypoxia Qualified Code(s): J96.01 - Acute respiratory failure with hypoxia Code(s): J96.00 - Acute respiratory failure, unspecified whether with hypoxia or hypercapnia Status: Acute Assessment and Plan: Acute Respiratory failure secondary to cardiac arrest, pulmonary edema, I doubt pneumonia is present and I will discontinue antibiotics. Continue full mechanical ventilation support to prevent hypoxemia/hypercarbia and end organ damage. ABG and PCXR reviewed Continue PEEP to 8. FiO2 is down at 40% Decrease aspirated 20 -discussed with POA, he wants to visitor and will withdraw support today as these were not her wishes. (2) Pulmonary edema: Qualifiers: Chronicity: acute Qualified Code(s): J81.0 - Acute pulmonary edema Code(s): J81.1 - Chronic pulmonary edema Status: Acute Assessment and Plan: Patient was given Lasix yesterday (3) Pneumonia: Code(s): J18.9 - Pneumonia, unspecified organism Status: Acute Assessment and Plan: I see no signs of significant pneumonia and her clinical picture is more consistent with congestive heart failure. Will discontinue antibiotics and increase diuretic doses. (4) Cardiac arrest: Code(s): I46.9 - Cardiac arrest, cause unspecified Status: Acute Assessment and Plan: Secondary to pulmonary edema and hypoxia EKG reviewed Serial troponin (5) Acute on chronic diastolic (congestive) heart failure: Code(s): I50.33 - Acute on chronic diastolic (congestive) heart failure Status: Acute Assessment and Plan: Patient was given Lasix in ED but she is currently on Levophed (6) CKD (chronic kidney disease): Qualifiers: Chronic kidney disease stage: stage 3 (moderate) Chronic kidney disease stage 3 subtype: stage 3b (GFR 30-44) Qualified Code(s): N18.32 - Chronic kidney disease, stage 3b Code(s): N18.9 - Chronic kidney disease, unspecified Status: Acute Assessment and Plan: Creatinine appears to be close to baseline Monitor urine output creatinine and electrolytes Kamala for accurate intake and output monitoring (7) Type 2 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 -Overall prognosis is very poor neurologic function does not improve. - Head CT was unremarkable on presentation (10) DVT (deep venous thrombosis): Qualifiers: DVT location: lower extremity Affected thrombotic vein of extremity: popliteal Chronicity: unspecified Laterality: unspecified laterality Qualified Code(s): I82.439 - Acute embolism and thrombosis of unspecified popliteal vein Code(s): I82.409 - Acute embolism and thrombosis of unspecified deep veins of unspecified lower extremity Status: Acute Assessment and Plan: Patient has history of DVT which was diagnosed in 07/2019. She is on chronic anticoagulation with Xarelto Continue heparin infusion at this time (11) CHF (congestive heart failure): Code(s): I50.9 - Heart failure, unspecified Status: Acute Assessment and Plan: Will start Lasix 80 mg IV b.i.d. and monitor her creatinine. Additional Plan DVT prophylaxis -hep
[2020-07-19] MEDS: MORPHINE SULFATE (*CRX) 2 MG/ML INJ IV PUSH (13:08)
--- NOTE | 2020-07-19 15:44 | PM.DDS ---
Discharge Sum: Prov Provider Primary care physician: Inder Scott MD Admitting provider: Alexandra Okeefe DO Consults: 07/15/20 03:11 Consult to Physician Routine Comment: Consulting Provider: Elysia Kendall Reason for consultation: status post cardiac arrest, respiratory failure Has provider been notified: Yes Discharge Sum: Diag Contributing Factors (1) Sepsis: (2) Acute respiratory failure: (3) Cardiac arrest: (4) Pulmonary edema: (5) Diabetes: (6) Acute on chronic diastolic (congestive) heart failure: (7) Anoxic brain injury: Discharge Sum: Summary Date and Time Date of admission: Interval history: 74 year old female chronic kidney disease, diabetes mellitus, morbid obesity with obstructive sleep apnea on chronic home oxygen and diastolic dysfunction grade 2 (echo April 2020) and recent hospitalization for similar symptoms. Admitted 07/15 with progressive dyspnea followed by cardiac arrest. Initial rhythm was asystole. In ICU on ventilator since admission. Did not awaken when sedation was weaned. Today as per ICU notes, patient remains intubated. Does not open her eyes to name of follows simple commands. Left pupil is fixed and dilated, right pupil is reactive. Appears to have sustained a anoxic brain injury. Family have decided to withdraw care in the morning. Pt passed soon after. Additional Data Attending physician: Assessment and Plan (1) Sepsis: Qualifiers: Sepsis type: sepsis due to unspecified organism Sepsis acute organ dysfunction status: with acute organ dysfunction Severe sepsis acute organ dysfunction type: encephalopathy Severe sepsis shock status: with septic shock Qualified Code(s): A41.9 - Sepsis, unspecified organism; R65.21 - Severe sepsis with septic shock; G93.40 - Encephalopathy, unspecified Code(s): A41.9 - Sepsis, unspecified organism Status: Acute Assessment and Plan: Continue Vanc, aztreonam for possible pulmonary etiology Norepinephrine Pt was changed to comfort care (2) Acute respiratory failure: Qualifiers: Respiratory failure complication: hypoxia Qualified Code(s): J96.01 - Acute respiratory failure with hypoxia Code(s): J96.00 - Acute respiratory failure, unspecified whether with hypoxia or hypercapnia Status: Acute Assessment and Plan: Pt was changed to comfort care (3) Cardiac arrest: Code(s): I46.9 - Cardiac arrest, cause unspecified Status: Acute Assessment and Plan: Asytolic Likely due to sepsis, respiratory failure (4) Pulmonary edema: Qualifiers: Chronicity: acute Qualified Code(s): J81.0 - Acute pulmonary edema Code(s): J81.1 - Chronic pulmonary edema Status: Acute Assessment and Plan: Pt was changed to comfort care (5) Diabetes: Qualifiers: Diabetes mellitus type: type 2 Diabetes mellitus continuous churn buttermaker insulin use: without assisted use Diabetes mellitus complication status: with hyperglycemia Qualified Code(s): E11.65 - Type 2 diabetes mellitus with hyperglycemia Code(s): E11.9 - Type 2 diabetes mellitus without complications Status: Acute Assessment and Plan: SSI (6) Acute on chronic diastolic (congestive) heart failure: Code(s): I50.33 - Acute on chronic diastolic (congestive) heart failure Status: Acute Assessment and Plan: Pt changed to comfort care (7) Anoxic brain injury: Code(s): G93.1 - Anoxic brain damage, not elsewhere classified Status: Acute Assessment and Plan:
[2020-07-20 21:42] LABS: Procalcitonin 11.76 ng/mL (<0.10)
== END 2020-07-19 14:07 | disposition expired | DRG 870 ==
LOC: ANHED 03:13 → ANHICU 07:55
PROVIDERS: Internal Medicine; Internal Medicine Critical Care Medicine; Admitting Provider Internal Medicine; Emergency Provider Emergency Medicine; PCP Family Medicine; Visit Provider Family Medicine
DX: A41.9 Sepsis, unspecified organism (principal); J96.21 Acute and chronic respiratory failure with hypoxia; I50.33 Acute on chronic diastolic (congestive) heart failure; R65.21 Severe sepsis with septic shock; G93.41 Metabolic encephalopathy; I13.0 Hypertensive heart and chronic kidney disease with heart failure and stage 1 through stage 4 chronic kidney disease, or unspecified chronic kidney disease; G93.1 Anoxic brain damage, not elsewhere classified; I46.9 Cardiac arrest, cause unspecified; Z99.81 Dependence on supplemental oxygen; E11.22 Type 2 diabetes mellitus with diabetic chronic kidney disease; N18.32 Chronic kidney disease, stage 3b; E11.65 Type 2 diabetes mellitus with hyperglycemia; G47.33 Obstructive sleep apnea (adult) (pediatric); G25.81 Restless legs syndrome; E78.2 Mixed hyperlipidemia; K21.9 Gastro-esophageal reflux disease without esophagitis; H40.9 Unspecified glaucoma; Z66 Do not resuscitate; Z79.01 Long term (current) use of anticoagulants; Z79.899 Other long term (current) drug therapy; Z85.6 Personal history of leukemia; Z86.718 Personal history of other venous thrombosis and embolism
CPT/HCPCS: 31500; 36415; 36556; 36600; 70450; 71045; 80048; 80053; 80061; 80202; 80307; 81001; 82375; 82550; 82565; 82805; 82948; 83050; 83605; 83690; 83735; 83880; 84100; 84145; 84484; 85025; 85027; 85380; 85610; 85730; 86140; 86850; 86900; 86901; 87040; 87070; 87205; 93005; 94003; 96365; 96375; 99291; A9270; C1751; C9113; J0610; J1644; J1940; J2060; J2270; J2543; J2704; J3370; J7030